=== PATIENT | female | born 1995 | race Caucasian/White ===

== ENCOUNTER 2017-11-13 16:27 | Emergency (ER) | payer MEDICAID ==
[~2017-11-13] VITALS: Ht 152.4 cm; Wt 56.1 kg
[~2017-11-13 16:27] MED LIST: ALBU8.5H8 IH; CITA20TA19 PO; DIAZ5TAB PO; DIVA500T2 PO; FAMO-128 PO; FAMO20TA44 PO; HYDR-569 PO; HYDR50CA5 PO; NITR100C6 PO; OMEP20CA10 PO; ONDA4TAB12 PO; ONDA4TAB6 PO; ONDA4TAB9 SL; ONDA8TAB9 PO; PANT-47 PO; PROC-8 PO; PROC25SU30 PR; RANI-366 PO; SUCR1ORA2 PO
[2017-11-13] MEDS ORDERED: ondansetron/PF 4mg/2ml inj IV ONE (16:40)
[2017-11-13] MEDS ORDERED: normal saline 1000ML IV soln IVB ONE (16:40)
[2017-11-13] MEDS ORDERED: ketorolac trometh. 30mg/ml inj. IV ONE (16:45)
[2017-11-13 17:22] LABS: BASOPHILS % (AUTO) 0.5 % (0-1); EOSINOPHILS # (AUTO) 0.1 X10'3 (0-0.9); EOSINOPHILS % (AUTO) 1.1 % (0-6); HEMATOCRIT 35.9 % (35.0-45.0); LYMPHOCYTES # (AUTO) 2.2 X10'3 (1.1-4.8); LYMPHOCYTES % (AUTO) 41.5 % (21-51); MEAN CORPUSCULAR HEMOGLOBIN 28.6 PG (27.0-31.0); MEAN CORPUSCULAR HGB CONC 33.5 % (33.0-36.5); MEAN CORPUSCULAR VOLUME 85.3 FL (78-98); MEAN PLATELET VOLUME 7.8 FL (7.4-10.4); MONOCYTES # (AUTO) 0.5 X10'3 (0-0.9); MONOCYTES % (AUTO) 9.7 % (2-12); NEUTROPHILS # (AUTO) 2.5 X10'3 (1.8-7.7); NEUTROPHILS % (AUTO) 47.2 % (42-75); PLATELET COUNT 238 X10'3 (140-440); RED BLOOD COUNT 4.21 X10'6 (4.20-5.60); RED CELL DISTRIBUTION WIDTH 14.1 % (11.5-14.5); WHITE BLOOD COUNT 5.4 X10'3 (4.5-11.0)
[2017-11-13 17:43] LABS: ALANINE AMINOTRANSFERASE 17 U/L (12-78); ALBUMIN 3.5 G/DL (3.4-5.0); ALBUMIN/GLOBULIN RATIO 1.1 (1.1-1.5); ALKALINE PHOSPHATASE 65 IU/L (20-180); ANION GAP 9 (8-16); ASPARTATE AMINO TRANSFERASE 10 U/L (10-37); BILIRUBIN,TOTAL 0.6 MG/DL (0.1-1.0); BLOOD UREA NITROGEN 5 MG/DL (7-18); BUN/CREATININE RATIO 7.2 (6.6-38.0); CALCIUM 8.4 MG/DL (8.5-10.1); CHLORIDE 104 MMOL/L (99-107); CREATININE 0.69 MG/DL (0.40-0.90); GLUCOSE 85 MG/DL (70-104); LIPASE 74 U/L (73-393); POTASSIUM 3.4 MMOL/L (3.5-5.1); SODIUM 138 MMOL/L (135-145); TOTAL CARBON DIOXIDE 25.5 MMOL/L (24-32); TOTAL PROTEIN 6.7 G/DL (6.4-8.2); eGFR > 90 ML/MIN
[2017-11-13 18:37] VITALS: BP 117/61
[2017-11-15 14:27] LABS: OCCULT BLOOD STOOL NEGATIVE (Neg)
== END 2017-11-13 18:39 | disposition home or self-care (01) ==
LOC: ER 16:27
DX: G89.29 Other chronic pain (principal); R10.11 Right upper quadrant pain; K21.9 Gastro-esophageal reflux disease without esophagitis; F12.10 Cannabis abuse, uncomplicated; Z88.8 Allergy status to other drugs, medicaments and biological substances; Z79.899 Other long term (current) drug therapy
CPT/HCPCS: 36415; 80053; 82272; 83690; 85025; 96361; 96374; 96375; 99284; J1885; J2405; J7030

== ENCOUNTER 2017-12-12 15:36 | Emergency (ER) | payer MEDICAID ==
[~2017-12-12] VITALS: Ht 152.4 cm; Wt 54.5 kg
[2017-12-12 16:48] LABS: BASOPHILS % (AUTO) 0.2 % (0-1); EOSINOPHILS # (AUTO) 0.1 X10'3 (0-0.9); EOSINOPHILS % (AUTO) 1.6 % (0-6); HEMATOCRIT 39.8 % (35.0-45.0); HEMOGLOBIN 13.6 g/dl (12.0-16.0); LYMPHOCYTES # (AUTO) 1.5 X10'3 (1.1-4.8); MEAN CORPUSCULAR HEMOGLOBIN 29.3 PG (27.0-31.0); MEAN CORPUSCULAR HGB CONC 34.1 % (33.0-36.5); MEAN CORPUSCULAR VOLUME 85.7 FL (78-98); MONOCYTES # (AUTO) 0.6 X10'3 (0-0.9); MONOCYTES % (AUTO) 12.8 % (2-12); NEUTROPHILS # (AUTO) 2.6 X10'3 (1.8-7.7); NEUTROPHILS % (AUTO) 54.4 % (42-75); PLATELET COUNT 265 X10'3 (140-440); RED BLOOD COUNT 4.65 X10'6 (4.20-5.60); RED CELL DISTRIBUTION WIDTH 13.5 % (11.5-14.5); WHITE BLOOD COUNT 4.8 X10'3 (4.5-11.0)
[2017-12-12 16:59] LABS: CLARITY,URINE CLOUDY (Clear); COLOR,URINE YELLOW (Yellow); GLUCOSE, URINE NEGATIVE (Neg); KETONES,URINE NEGATIVE (Neg); LEUKOCYTE ESTERASE ,URINE NEGATIVE (Neg); NITRITES, URINE NEGATIVE (Neg); OCCULT BLOOD,URINE TRACE-INTACT (Neg); PROTEIN,URINE NEGATIVE (Neg); UROBILINOGEN,URINE 0.2 E.U/dL (0.2-1.0)
[2017-12-12 17:00] LABS: URINE HCG NEGATIVE (NEG)
[2017-12-12 17:01] LABS: UA COLLECTION TYPE CLN CATCH MIDSTREAM
[2017-12-12 17:05] LABS: ALANINE AMINOTRANSFERASE 10 U/L (12-78); ALBUMIN 4.1 G/DL (3.4-5.0); ALBUMIN/GLOBULIN RATIO 1.2 (1.1-1.5); ALKALINE PHOSPHATASE 62 IU/L (20-180); ANION GAP 11 (8-16); ASPARTATE AMINO TRANSFERASE 11 U/L (10-37); BILIRUBIN,TOTAL 0.7 MG/DL (0.1-1.0); BLOOD UREA NITROGEN 5 MG/DL (7-18); BUN/CREATININE RATIO 6.8 (6.6-38.0); CALCIUM 8.9 MG/DL (8.5-10.1); CHLORIDE 104 MMOL/L (99-107); CREATININE 0.74 MG/DL (0.40-0.90); GLUCOSE 92 MG/DL (70-104); LIPASE 79 U/L (73-393); POTASSIUM 3.5 MMOL/L (3.5-5.1); SODIUM 140 MMOL/L (135-145); TOTAL PROTEIN 7.5 G/DL (6.4-8.2); eGFR > 90 ML/MIN
[2017-12-12 17:10] LABS: MUCUS STRANDS MANY /LPF (Neg); SQUAMOUS EPITHELIAL CELL,UR MANY /LPF (FEW)
[2017-12-12 17:12] LABS: BACTERIA,URINE 1+ /HPF (Neg); RBC,URINE 0-2 /HPF (0-2); WBC,URINE 0-4 /HPF (0-4)
[2017-12-12] MEDS ORDERED: ondansetron/PF 4mg/2ml inj IV ONE (17:20)
[2017-12-12] MEDS ORDERED: ketorolac trometh. 30mg/ml inj. IV ONE (17:20)
[2017-12-12] MEDS ORDERED: normal saline 1000ML IV soln IVB ONE (17:20)
[2017-12-12 18:58] LABS: URINE AMPHETAMINE SCREEN NEGATIVE (Neg); URINE BARBITUATE SCREEN NEGATIVE (Neg); URINE BENZODIAZEPINES SCREEN POSITIVE (Neg); URINE CANNABINOID SCREEN POSITIVE (Neg); URINE COCAINE SCREEN NEGATIVE (Neg); URINE METHADONE SCREEN NEGATIVE (Neg); URINE OPIATE SCREEN NEGATIVE (Neg); URINE PHENCYCLIDINE SCREEN NEGATIVE (Neg)
[2017-12-12 19:35] VITALS: BP 136/56
== END 2017-12-12 19:38 | disposition home or self-care (01) ==
LOC: ER 15:37
DX: R10.9 Unspecified abdominal pain (principal); R11.0 Nausea; G89.29 Other chronic pain; K21.9 Gastro-esophageal reflux disease without esophagitis; Z88.8 Allergy status to other drugs, medicaments and biological substances; Z79.899 Other long term (current) drug therapy
CPT/HCPCS: 36415; 80053; 80305; 81001; 81025; 83690; 85025; 96361; 96374; 96375; 99285; J1885; J2405

== ENCOUNTER 2017-12-14 10:11 | Emergency (ER) | payer MEDICAID ==
[~2017-12-14] VITALS: Ht 152.4 cm; Wt 54.5 kg
[~2017-12-14 10:11] MED LIST changes: -ONDA4TAB9 SL
[2017-12-14 10:16] VITALS: BP 128/24
== END 2017-12-14 10:35 | disposition left against medical advice (07) ==
LOC: ER 10:12
DX: R10.9 Unspecified abdominal pain (principal); Z53.21 Procedure and treatment not carried out due to patient leaving prior to being seen by health care provider

== ENCOUNTER 2018-09-23 15:34 | Emergency (ER) | payer MEDICAID ==
[~2018-09-23] VITALS: Ht 152.4 cm; Wt 53.6 kg
[~2018-09-23 15:34] MED LIST changes: +HYDR-4383 PO; -HYDR-569 PO
[2018-09-23 15:47] VITALS: BP 112/80
[2018-09-23] MEDS ORDERED: IBUP-1984 PO (17:18)
== END 2018-09-23 17:41 | disposition home or self-care (01) ==
LOC: ER 15:35
DX: M25.512 Pain in left shoulder (principal); K21.9 Gastro-esophageal reflux disease without esophagitis; F17.200 Nicotine dependence, unspecified, uncomplicated; F12.90 Cannabis use, unspecified, uncomplicated; Z88.8 Allergy status to other drugs, medicaments and biological substances; Z79.899 Other long term (current) drug therapy
CPT/HCPCS: 73030; 99283

== ENCOUNTER 2018-12-26 12:59 | Emergency (ER) | payer MEDICAID ==
[~2018-12-26] VITALS: Ht 152.4 cm; Wt 52.7 kg
[2018-12-26 13:58] LABS: BASOPHILS # (AUTO) 0.1 X10'3 (0-0.2); EOSINOPHILS # (AUTO) 0.1 X10'3 (0-0.9); EOSINOPHILS % (AUTO) 1.6 % (0-6); HEMATOCRIT 42.3 % (35.0-45.0); HEMOGLOBIN 14.5 g/dl (12.0-16.0); LYMPHOCYTES % (AUTO) 39.7 % (21-51); MEAN CORPUSCULAR HEMOGLOBIN 30.8 PG (27.0-31.0); MEAN CORPUSCULAR HGB CONC 34.3 g/dL (33.0-36.5); MEAN CORPUSCULAR VOLUME 89.8 FL (78-98); MEAN PLATELET VOLUME 8.1 FL (7.4-10.4); MONOCYTES # (AUTO) 0.5 X10'3 (0-0.9); MONOCYTES % (AUTO) 9.4 % (2-12); NEUTROPHILS # (AUTO) 2.4 X10'3 (1.8-7.7); NEUTROPHILS % (AUTO) 48.3 % (42-75); PLATELET COUNT 268 X10'3 (140-440); RED BLOOD COUNT 4.71 X10'6 (4.20-5.60); RED CELL DISTRIBUTION WIDTH 13.2 % (11.5-14.5); WHITE BLOOD COUNT 5.1 X10'3 (4.5-11.0)
[2018-12-26 14:03] VITALS: BP 140/93
[2018-12-26 14:08] LABS: ALANINE AMINOTRANSFERASE 17 U/L (12-78); ALBUMIN 3.9 G/DL (3.4-5.0); ALBUMIN/GLOBULIN RATIO 1.2 (1.1-1.5); ALKALINE PHOSPHATASE 64 IU/L (46-116); ANION GAP 8 (8-16); ASPARTATE AMINO TRANSFERASE 14 U/L (10-37); BILIRUBIN,TOTAL 0.3 MG/DL (0.1-1.0); BLOOD UREA NITROGEN 5 MG/DL (7-18); BUN/CREATININE RATIO 7.4 (6.6-38.0); CALCIUM 8.8 MG/DL (8.5-10.1); CHLORIDE 103 MMOL/L (99-107); CREATININE 0.68 MG/DL (0.40-0.90); GLUCOSE 91 MG/DL (70-104); POTASSIUM 3.8 MMOL/L (3.5-5.1); PROTHROMBIN TIME 10.1 SECONDS (9.0-12.0); SODIUM 139 MMOL/L (135-145); TOTAL CARBON DIOXIDE 27.7 MMOL/L (24-32); TOTAL PROTEIN 7.2 G/DL (6.4-8.2); eGFR > 90 ML/MIN
--- NOTE | 2018-12-26 16:27 | NUR ---
SECOND CALL NOT IN LOBBY
== END 2018-12-26 16:30 | disposition left against medical advice (07) ==
LOC: ER 12:59
DX: R10.9 Unspecified abdominal pain (principal); M54.9 Dorsalgia, unspecified; K21.9 Gastro-esophageal reflux disease without esophagitis; F12.90 Cannabis use, unspecified, uncomplicated; Z88.8 Allergy status to other drugs, medicaments and biological substances; Z79.899 Other long term (current) drug therapy; Z87.11 Personal history of peptic ulcer disease
CPT/HCPCS: 36415; 80053; 85025; 85610; 99283

== ENCOUNTER 2019-02-06 18:24 | Emergency (ER) | payer MEDICAID ==
[~2019-02-06] VITALS: Ht 152.4 cm; Wt 54.0 kg
[2019-02-06 18:51] VITALS: BP 108/65
[2019-02-06] MEDS ORDERED: ketorolac tromethamine 15mg/ml inj. IM ONE (20:00)
[2019-02-06] MEDS ORDERED: orphenadrine citrate 60mg/2ml inj. IM ONE (20:00)
[2019-02-06] MEDS ORDERED: ondansetron 4mg rapidly disintigrating tab PO ONE (20:15)
[2019-02-06] MEDS ORDERED: IBUP-1985 PO (20:42)
[2019-02-06] MEDS ORDERED: METH-360 PO (20:42)
== END 2019-02-06 21:06 | disposition home or self-care (01) ==
LOC: ER 18:25
DX: S29.012A Strain of muscle and tendon of back wall of thorax, initial encounter (principal); M54.5 Low back pain; K21.9 Gastro-esophageal reflux disease without esophagitis; F12.90 Cannabis use, unspecified, uncomplicated; Z87.11 Personal history of peptic ulcer disease; Z88.8 Allergy status to other drugs, medicaments and biological substances; Z88.1 Allergy status to other antibiotic agents; Z79.899 Other long term (current) drug therapy; W01.0XXA Fall on same level from slipping, tripping and stumbling without subsequent striking against object, initial encounter; Y93.89 Activity, other specified; Y92.89 Other specified places as the place of occurrence of the external cause; Y99.9 Unspecified external cause status
CPT/HCPCS: 72080; 96372; 99284; J1885; J2360; 99283

== ENCOUNTER 2019-03-27 08:32 | Emergency (ER) | payer MEDICAID ==
[~2019-03-27] VITALS: Ht 152.4 cm; Wt 5.5 kg
[~2019-03-27 08:32] MED LIST changes: +IBUP-1985 PO; +METH-360 PO
[2019-03-27] MEDS ORDERED: diphenhydrAMINE 50 mg/ml inj IV ONE (08:50)
[2019-03-27] MEDS ORDERED: normal saline 1000ML IV soln IVB ONE (08:50)
[2019-03-27 09:25] LABS: BASOPHILS % (AUTO) 0.1 % (0-1); EOSINOPHILS % (AUTO) 0.1 % (0-6); HEMATOCRIT 41.7 % (35.0-45.0); HEMOGLOBIN 14.2 g/dl (12.0-16.0); LYMPHOCYTES # (AUTO) 0.8 X10'3 (1.1-4.8); LYMPHOCYTES % (AUTO) 7.1 % (21-51); MEAN CORPUSCULAR HEMOGLOBIN 30.2 PG (27.0-31.0); MEAN PLATELET VOLUME 8.3 FL (7.4-10.4); MONOCYTES # (AUTO) 0.7 X10'3 (0-0.9); MONOCYTES % (AUTO) 6.5 % (2-12); NEUTROPHILS # (AUTO) 9.4 X10'3 (1.8-7.7); NEUTROPHILS % (AUTO) 86.2 % (42-75); PLATELET COUNT 261 X10'3 (140-440); RED BLOOD COUNT 4.69 X10'6 (4.20-5.60); RED CELL DISTRIBUTION WIDTH 13.3 % (11.5-14.5); WHITE BLOOD COUNT 10.9 X10'3 (4.5-11.0)
[2019-03-27 09:30] LABS: URINE HCG NEGATIVE (NEG)
[2019-03-27] MEDS ORDERED: ondansetron/PF 4mg/2ml inj IV ONE (09:35)
[2019-03-27 09:37] LABS: ALANINE AMINOTRANSFERASE 16 U/L (12-78); ALBUMIN 4.2 G/DL (3.4-5.0); ALBUMIN/GLOBULIN RATIO 1.2 (1.1-1.5); ALKALINE PHOSPHATASE 76 IU/L (46-116); ANION GAP 17 (8-16); ASPARTATE AMINO TRANSFERASE 15 U/L (10-37); BILIRUBIN,TOTAL 0.4 MG/DL (0.1-1.0); BLOOD UREA NITROGEN 8 MG/DL (7-18); BUN/CREATININE RATIO 9.9 (6.6-38.0); CALCIUM 9.2 MG/DL (8.5-10.1); CHLORIDE 103 MMOL/L (99-107); CREATININE 0.81 MG/DL (0.40-0.90); GLUCOSE 113 MG/DL (70-104); LIPASE 73 U/L (73-393); POTASSIUM 3.3 MMOL/L (3.5-5.1); SODIUM 137 MMOL/L (135-145); TOTAL CARBON DIOXIDE 17.2 MMOL/L (24-32); TOTAL PROTEIN 7.7 G/DL (6.4-8.2); eGFR 89 ML/MIN
[2019-03-27 09:59] VITALS: BP 103/55
[2019-03-27] MEDS ORDERED: METO-292 PO (15:27)
== END 2019-03-27 10:05 | disposition home or self-care (01) ==
LOC: ER 08:32
DX: R11.2 Nausea with vomiting, unspecified (principal); R19.7 Diarrhea, unspecified; K21.9 Gastro-esophageal reflux disease without esophagitis; F17.200 Nicotine dependence, unspecified, uncomplicated; F12.90 Cannabis use, unspecified, uncomplicated; Z88.8 Allergy status to other drugs, medicaments and biological substances; Z79.899 Other long term (current) drug therapy
CPT/HCPCS: 36415; 80053; 81025; 83690; 85025; 96361; 96374; 96375; 99283; J1200; J2405; J7030

== ENCOUNTER 2019-03-27 13:09 | Emergency (ER) | payer MEDICAID ==
[~2019-03-27] VITALS: Ht 152.4 cm; Wt 54.5 kg
[2019-03-27 13:30] VITALS: BP 118/80
[2019-03-27] MEDS ORDERED: metoclopramide 5 mg/ml inj IM ONE (14:45)
[2019-03-27] MEDS ORDERED: diphenhydrAMINE 25mg capsule PO ONE (15:20)
[2019-03-27] MEDS ORDERED: METO-292 PO (15:27)
== END 2019-03-27 15:37 | disposition home or self-care (01) ==
LOC: ER 13:10
DX: R11.2 Nausea with vomiting, unspecified (principal); K21.9 Gastro-esophageal reflux disease without esophagitis; F12.90 Cannabis use, unspecified, uncomplicated; Z88.8 Allergy status to other drugs, medicaments and biological substances; Z79.899 Other long term (current) drug therapy
CPT/HCPCS: 96372; 99283; J2765; Q0163

== ENCOUNTER 2019-05-20 08:45 | Emergency (ER) | payer MEDICAID ==
[~2019-05-20] VITALS: Ht 165.1 cm; Wt 55.0 kg
[~2019-05-20 08:45] MED LIST changes: +METO-292 PO; -OMEP20CA10 PO; +OMEP20CA11 PO
[2019-05-20 08:56] VITALS: BP 113/78
[2019-05-20 09:41] LABS: BASOPHILS % (AUTO) 0.8 % (0-1); EOSINOPHILS # (AUTO) 0.1 X10'3 (0-0.9); EOSINOPHILS % (AUTO) 1.5 % (0-6); HEMOGLOBIN 14.5 g/dl (12.0-16.0); LYMPHOCYTES # (AUTO) 1.5 X10'3 (1.1-4.8); LYMPHOCYTES % (AUTO) 31.4 % (21-51); MEAN CORPUSCULAR HEMOGLOBIN 30.7 PG (27.0-31.0); MEAN CORPUSCULAR HGB CONC 34.4 g/dL (33.0-36.5); MEAN CORPUSCULAR VOLUME 89.1 FL (78-98); MEAN PLATELET VOLUME 7.9 FL (7.4-10.4); MONOCYTES # (AUTO) 0.5 X10'3 (0-0.9); MONOCYTES % (AUTO) 11.1 % (2-12); NEUTROPHILS # (AUTO) 2.7 X10'3 (1.8-7.7); NEUTROPHILS % (AUTO) 55.2 % (42-75); PLATELET COUNT 244 X10'3 (140-440); RED BLOOD COUNT 4.72 X10'6 (4.20-5.60); RED CELL DISTRIBUTION WIDTH 12.6 % (11.5-14.5); WHITE BLOOD COUNT 4.9 X10'3 (4.5-11.0)
[2019-05-20 10:00] LABS: ALANINE AMINOTRANSFERASE 22 U/L (12-78); ALBUMIN 3.8 G/DL (3.4-5.0); ALBUMIN/GLOBULIN RATIO 1.1 (1.1-1.5); ALKALINE PHOSPHATASE 59 IU/L (46-116); ANION GAP 9 (8-16); ASPARTATE AMINO TRANSFERASE 10 U/L (10-37); BILIRUBIN,TOTAL 0.5 MG/DL (0.1-1.0); BLOOD UREA NITROGEN 9 MG/DL (7-18); BUN/CREATININE RATIO 13.2 (6.6-38.0); CHLORIDE 103 MMOL/L (99-107); CREATININE 0.68 MG/DL (0.40-0.90); GLUCOSE 92 MG/DL (70-104); LIPASE 71 U/L (73-393); POTASSIUM 3.9 MMOL/L (3.5-5.1); SODIUM 135 MMOL/L (135-145); TOTAL CARBON DIOXIDE 23.2 MMOL/L (24-32); TOTAL PROTEIN 7.2 G/DL (6.4-8.2); eGFR > 90 ML/MIN
[2019-05-20 10:02] LABS: CALCIUM 8.8 MG/DL (8.5-10.1)
[2019-05-20] MEDS ORDERED: metoclopramide 10mg/10 ml UD oral solution PO ONE (10:15)
[2019-05-20] MEDS ORDERED: diphenhydrAMINE 50 mg/ml inj IM ONE (10:15)
[2019-05-20 10:24] LABS: CLARITY,URINE SLIGHTLY CLOUDY (Clear); COLOR,URINE STRAW (Yellow); GLUCOSE, URINE NEGATIVE (Neg); KETONES,URINE NEGATIVE (Neg); LEUKOCYTE ESTERASE ,URINE NEGATIVE (Neg); NITRITES, URINE NEGATIVE (Neg); OCCULT BLOOD,URINE NEGATIVE (Neg); PROTEIN,URINE NEGATIVE (Neg); UROBILINOGEN,URINE 0.2 E.U/dL (0.2-1.0)
[2019-05-20 10:25] LABS: URINE HCG NEGATIVE (NEG)
[2019-05-20 10:27] LABS: UA COLLECTION TYPE CLN CATCH MIDSTREAM
[2019-05-20 10:31] LABS: BACTERIA,URINE 1+ /HPF (Neg); MUCUS STRANDS NONE SEEN /LPF (Neg); RBC,URINE 0-2 /HPF (0-2); SQUAMOUS EPITHELIAL CELL,UR MODERATE /LPF (FEW); WBC,URINE 0-4 /HPF (0-4)
== END 2019-05-20 10:45 | disposition home or self-care (01) ==
LOC: ER 08:46
DX: G43.A0 Cyclical vomiting, in migraine, not intractable (principal); R10.13 Epigastric pain; K21.9 Gastro-esophageal reflux disease without esophagitis; F41.9 Anxiety disorder, unspecified; F32.9 Major depressive disorder, single episode, unspecified; F12.90 Cannabis use, unspecified, uncomplicated; F10.99 Alcohol use, unspecified with unspecified alcohol-induced disorder; Z86.69 Personal history of other diseases of the nervous system and sense organs; Z88.8 Allergy status to other drugs, medicaments and biological substances; Z79.899 Other long term (current) drug therapy; Y90.9 Presence of alcohol in blood, level not specified
CPT/HCPCS: 36415; 80053; 81001; 81025; 83690; 85025; 96372; 99283; J1200; J8597

== ENCOUNTER 2019-06-30 07:16 | Emergency (ER) | payer MEDICAID ==
[~2019-06-30] VITALS: Ht 152.4 cm; Wt 56.8 kg
[2019-06-30 07:21] VITALS: BP 113/81
[2019-06-30] MEDS ORDERED: BENZ-16 PO (07:58)
[2019-06-30] MEDS ORDERED: acetaminophen 325mg tablet PO ONE (08:00)
[2019-06-30] MEDS ORDERED: ondansetron 4mg rapidly disintigrating tab PO ONE (08:00)
[2019-06-30] MEDS ORDERED: benzonatate 100mg capsule PO ONE (08:00)
[2019-06-30] MEDS ORDERED: pantoprazole 40mg Tablet.DR PO ONE (08:00)
[2019-06-30] MEDS ORDERED: pseudoephedrine 30mg tablet PO ONE (08:00)
== END 2019-06-30 08:34 | disposition home or self-care (01) ==
LOC: ER 07:16
DX: J06.9 Acute upper respiratory infection, unspecified (principal); H92.01 Otalgia, right ear; K21.9 Gastro-esophageal reflux disease without esophagitis; F41.9 Anxiety disorder, unspecified; F32.9 Major depressive disorder, single episode, unspecified; F17.200 Nicotine dependence, unspecified, uncomplicated; F12.90 Cannabis use, unspecified, uncomplicated; F10.99 Alcohol use, unspecified with unspecified alcohol-induced disorder; Z86.69 Personal history of other diseases of the nervous system and sense organs; Z88.8 Allergy status to other drugs, medicaments and biological substances; Z79.899 Other long term (current) drug therapy; Y90.9 Presence of alcohol in blood, level not specified
CPT/HCPCS: 99284

== ENCOUNTER 2019-10-01 08:41 | Emergency (ER) | payer MEDICAID ==
[~2019-10-01] VITALS: Ht 152.4 cm; Wt 54.5 kg
[2019-10-01 08:49] VITALS: BP 119/79
[2019-10-01] MEDS ORDERED: sucralfate 1gm/10ml UD suspension PO STA (09:58)
[2019-10-01] MEDS ORDERED: ondansetron 4mg rapidly disintigrating tab PO ONE (10:00)
[2019-10-01] MEDS ORDERED: LIDOcaine Viscous 15ml cup MM ONE (10:00)
[2019-10-01] MEDS ORDERED: mag hydrox/Alum hydrox/simeth 30ml oral suspension PO ONE (10:00)
[2019-10-01] MEDS ORDERED: ketorolac trometh. 30mg/ml inj. IM ONE (10:00)
== END 2019-10-01 10:54 | disposition left against medical advice (07) ==
LOC: ER 08:42
DX: R05 Cough (principal); R09.3 Abnormal sputum; R11.2 Nausea with vomiting, unspecified; R51 Headache; K21.9 Gastro-esophageal reflux disease without esophagitis; F41.9 Anxiety disorder, unspecified; F32.9 Major depressive disorder, single episode, unspecified; F10.99 Alcohol use, unspecified with unspecified alcohol-induced disorder; F12.90 Cannabis use, unspecified, uncomplicated; Z86.69 Personal history of other diseases of the nervous system and sense organs; Z88.8 Allergy status to other drugs, medicaments and biological substances; Z79.899 Other long term (current) drug therapy; Y90.9 Presence of alcohol in blood, level not specified
CPT/HCPCS: 99281

== ENCOUNTER 2019-11-29 13:43 | Emergency (ER) | payer MEDICAID ==
[~2019-11-29] VITALS: Ht 152.4 cm; Wt 56.0 kg
[~2019-11-29 13:43] MED LIST changes: -OMEP20CA11 PO; +OMEP20CA15 PO
[2019-11-29 15:28] VITALS: BP 119/89
== END 2019-11-29 15:30 | disposition home or self-care (01) ==
LOC: ER 13:44
DX: R11.2 Nausea with vomiting, unspecified (principal); R51 Headache; K21.9 Gastro-esophageal reflux disease without esophagitis; F41.9 Anxiety disorder, unspecified; F32.9 Major depressive disorder, single episode, unspecified; F12.90 Cannabis use, unspecified, uncomplicated; F17.200 Nicotine dependence, unspecified, uncomplicated; Z86.69 Personal history of other diseases of the nervous system and sense organs; Z88.8 Allergy status to other drugs, medicaments and biological substances; Z79.899 Other long term (current) drug therapy
CPT/HCPCS: 99281

== ENCOUNTER 2019-12-19 11:01 | Emergency (ER) | payer MEDICAID ==
[~2019-12-19] VITALS: Ht 152.4 cm; Wt 56.0 kg
[2019-12-19] MEDS ORDERED: ondansetron/PF 4mg/2ml inj IV ONE (12:10)
[2019-12-19] MEDS ORDERED: normal saline 1000ML IV soln IVB ONE (12:10)
[2019-12-19] MEDS ORDERED: ketorolac trometh. 30mg/ml inj. IV ONE (12:30)
[2019-12-19 12:47] LABS: BASOPHILS % (AUTO) 0.5 % (0-1); EOSINOPHILS # (AUTO) 0.1 X10'3 (0-0.9); EOSINOPHILS % (AUTO) 1.8 % (0-6); HEMATOCRIT 42.5 % (35.0-45.0); HEMOGLOBIN 14.4 g/dl (12.0-16.0); LYMPHOCYTES # (AUTO) 1.6 X10'3 (1.1-4.8); LYMPHOCYTES % (AUTO) 51.8 % (21-51); MEAN CORPUSCULAR HGB CONC 33.9 g/dL (33.0-36.5); MEAN CORPUSCULAR VOLUME 88.3 FL (78-98); MEAN PLATELET VOLUME 7.8 FL (7.4-10.4); MONOCYTES # (AUTO) 0.3 X10'3 (0-0.9); MONOCYTES % (AUTO) 10.3 % (2-12); NEUTROPHILS # (AUTO) 1.1 X10'3 (1.8-7.7); NEUTROPHILS % (AUTO) 35.6 % (42-75); PLATELET COUNT 247 X10'3 (140-440); RED BLOOD COUNT 4.81 X10'6 (4.20-5.60); WHITE BLOOD COUNT 3.2 X10'3 (4.5-11.0)
[2019-12-19 13:01] LABS: ALANINE AMINOTRANSFERASE 15 U/L (12-78); ALBUMIN 3.7 G/DL (3.4-5.0); ALBUMIN/GLOBULIN RATIO 1.1 (1.1-1.5); ALKALINE PHOSPHATASE 56 IU/L (46-116); ANION GAP 5 (8-16); ASPARTATE AMINO TRANSFERASE 15 U/L (10-37); BILIRUBIN,TOTAL 0.2 MG/DL (0.1-1.0); BLOOD UREA NITROGEN 7 MG/DL (7-18); BUN/CREATININE RATIO 10.8 (6.6-38.0); CALCIUM 8.6 MG/DL (8.5-10.1); CHLORIDE 108 MMOL/L (99-107); CREATININE 0.65 MG/DL (0.40-0.90); GLUCOSE 82 MG/DL (70-104); LIPASE 90 U/L (73-393); POTASSIUM 4.1 MMOL/L (3.5-5.1); SODIUM 142 MMOL/L (135-145); TOTAL CARBON DIOXIDE 28.8 MMOL/L (24-32); eGFR > 90 ML/MIN
[2019-12-19] MEDS ORDERED: ONDA4TAB12 PO (13:18)
[2019-12-19 13:45] VITALS: BP 98/74
== END 2019-12-19 13:49 | disposition home or self-care (01) ==
LOC: ER 11:02
DX: E86.0 Dehydration (principal); R11.15 Cyclical vomiting syndrome unrelated to migraine; F12.90 Cannabis use, unspecified, uncomplicated; R51 Headache; K21.9 Gastro-esophageal reflux disease without esophagitis; F41.9 Anxiety disorder, unspecified; F17.200 Nicotine dependence, unspecified, uncomplicated; F32.9 Major depressive disorder, single episode, unspecified; Z72.89 Other problems related to lifestyle; Z86.69 Personal history of other diseases of the nervous system and sense organs; Z88.8 Allergy status to other drugs, medicaments and biological substances; Z79.899 Other long term (current) drug therapy
CPT/HCPCS: 36415; 80053; 83690; 85025; 96361; 96374; 96375; 99284; J1885; J2405; J7030

== ENCOUNTER 2020-02-25 18:15 | Emergency (ER) | payer MEDICAID ==
[~2020-02-25] VITALS: Ht 152.4 cm; Wt 56.8 kg
[2020-02-25] MEDS ORDERED: LIDOcaine 1% 30ml preserv. free vial IJ ONE (19:00)
[2020-02-25] MEDS ORDERED: LIDOcaine 1% 30ml preserv. free vial ONE (19:00)
[2020-02-25] MEDS ORDERED: TETanus/Pertussis (Acell)/Diphther VAC/PF (Tdap-Adult) 0.5ml syringe IMVAC ONE (19:00)
[2020-02-25 20:07] VITALS: BP 137/83
== END 2020-02-25 20:11 | disposition home or self-care (01) ==
LOC: ER 18:15
DX: S61.211A Laceration without foreign body of left index finger without damage to nail, initial encounter (principal); K21.9 Gastro-esophageal reflux disease without esophagitis; F41.9 Anxiety disorder, unspecified; F32.9 Major depressive disorder, single episode, unspecified; F12.90 Cannabis use, unspecified, uncomplicated; Z72.89 Other problems related to lifestyle; Z88.8 Allergy status to other drugs, medicaments and biological substances; Z86.69 Personal history of other diseases of the nervous system and sense organs; Z79.899 Other long term (current) drug therapy; W26.0XXA Contact with knife, initial encounter; Y93.89 Activity, other specified; Y92.89 Other specified places as the place of occurrence of the external cause; Y99.8 Other external cause status
CPT/HCPCS: 12041; 90471; 90715; 99284; J2001

== ENCOUNTER 2020-02-27 12:57 | Emergency (ER) | payer MEDICAID ==
[~2020-02-27] VITALS: Ht 152.4 cm; Wt 55.6 kg
[2020-02-27 13:11] VITALS: BP 122/71
--- NOTE | 2020-02-27 13:47 | NUR ---
pt is 24 yo female c/o rt sided face pain, swelling, had tooth removed yesterday by Dr Garcia, provider is not in the office today, pt plans to follow up with dentist tomorrow, pt took norco at 0530, zofran at 0530, tried taking motrin later, +n/v, pt has prescription of zofran for "stomach ulcer",
[2020-02-27] MEDS ORDERED: acetaminophen/codeine 120mg/12mg per 5ml cup PO ONE (15:30)
[2020-02-27] MEDS ORDERED: ACET5SOL2 PO (15:34)
== END 2020-02-27 15:55 | disposition home or self-care (01) ==
LOC: ER 12:58
DX: K08.89 Other specified disorders of teeth and supporting structures (principal); K21.9 Gastro-esophageal reflux disease without esophagitis; F32.9 Major depressive disorder, single episode, unspecified; F41.9 Anxiety disorder, unspecified; F17.200 Nicotine dependence, unspecified, uncomplicated; F12.90 Cannabis use, unspecified, uncomplicated; Z86.69 Personal history of other diseases of the nervous system and sense organs; Z72.89 Other problems related to lifestyle; Z88.8 Allergy status to other drugs, medicaments and biological substances; Z88.1 Allergy status to other antibiotic agents; Z79.899 Other long term (current) drug therapy
CPT/HCPCS: 99283

== ENCOUNTER 2020-03-05 09:44 | Emergency (ER) | payer MEDICAID ==
[~2020-03-05] VITALS: Ht 152.4 cm; Wt 56.3 kg
[~2020-03-05 09:44] MED LIST changes: +ACET5SOL2 PO
--- NOTE | 2020-03-05 09:59 | NUR ---
Suture removal kit placed in room at bedside.
[2020-03-05 10:35] VITALS: BP 121/64
== END 2020-03-05 10:35 | disposition home or self-care (01) ==
LOC: ER 09:45
DX: S61.211D Laceration without foreign body of left index finger without damage to nail, subsequent encounter (principal); F17.299 Nicotine dependence, other tobacco product, with unspecified nicotine-induced disorders; K21.9 Gastro-esophageal reflux disease without esophagitis; F41.9 Anxiety disorder, unspecified; F32.9 Major depressive disorder, single episode, unspecified; F12.90 Cannabis use, unspecified, uncomplicated; Z72.89 Other problems related to lifestyle; Z86.69 Personal history of other diseases of the nervous system and sense organs; Z88.8 Allergy status to other drugs, medicaments and biological substances; Z79.899 Other long term (current) drug therapy; W26.0XXA Contact with knife, initial encounter; Y93.89 Activity, other specified; Y92.89 Other specified places as the place of occurrence of the external cause; Y99.8 Other external cause status
CPT/HCPCS: 99281; 99406

== ENCOUNTER 2020-10-19 21:12 | Emergency (ER) | payer MEDICAID ==
[~2020-10-19] VITALS: Ht 152.4 cm; Wt 68.1 kg
[2020-10-19 21:20] VITALS: BP 129/95
[2020-10-19 21:50] LABS: BASOPHILS % (AUTO) 0.5 % (0-1); EOSINOPHILS % (AUTO) 0.2 % (0-6); HEMATOCRIT 41.9 % (35.0-45.0); HEMOGLOBIN 14.3 g/dl (12.0-16.0); LYMPHOCYTES # (AUTO) 2.2 X10'3 (1.1-4.8); LYMPHOCYTES % (AUTO) 33.4 % (21-51); MEAN CORPUSCULAR HEMOGLOBIN 30.7 PG (27.0-31.0); MEAN CORPUSCULAR HGB CONC 34.2 g/dL (33.0-36.5); MEAN CORPUSCULAR VOLUME 89.7 FL (78-98); MEAN PLATELET VOLUME 8.3 FL (7.4-10.4); MONOCYTES # (AUTO) 0.6 X10'3 (0-0.9); MONOCYTES % (AUTO) 9.2 % (2-12); NEUTROPHILS # (AUTO) 3.8 X10'3 (1.8-7.7); NEUTROPHILS % (AUTO) 56.7 % (42-75); PLATELET COUNT 256 X10'3 (140-440); RED BLOOD COUNT 4.67 X10'6 (4.20-5.60); RED CELL DISTRIBUTION WIDTH 12.5 % (11.5-14.5); WHITE BLOOD COUNT 6.6 X10'3 (4.5-11.0)
[2020-10-19 21:58] LABS: ALANINE AMINOTRANSFERASE 17 U/L (12-78); ALBUMIN 4.6 G/DL (3.4-5.0); ALBUMIN/GLOBULIN RATIO 1.6 (1.1-1.5); ALKALINE PHOSPHATASE 53 IU/L (46-116); ANION GAP 12 (8-16); ASPARTATE AMINO TRANSFERASE 13 U/L (10-37); BLOOD UREA NITROGEN 9 MG/DL (7-18); BUN/CREATININE RATIO 10.7 (6.6-38.0); CALCIUM 9.4 MG/DL (8.5-10.1); CHLORIDE 103 MMOL/L (99-107); CREATININE 0.84 MG/DL (0.40-0.90); GLUCOSE 84 MG/DL (70-104); LIPASE < 50 U/L (73-393); POTASSIUM 3.1 MMOL/L (3.5-5.1); SODIUM 139 MMOL/L (135-145); TOTAL CARBON DIOXIDE 23.8 MMOL/L (24-32); TOTAL PROTEIN 7.4 G/DL (6.4-8.2); eGFR 84 ML/MIN
[2020-10-19] MEDS ORDERED: normal saline 1000ML IV soln IVB ONE (22:10)
[2020-10-19] MEDS ORDERED: ketorolac tromethamine 15mg/ml inj. IV ONE (22:10)
[2020-10-19] MEDS ORDERED: ondansetron/PF 4mg/2ml inj IV ONE (22:10)
[2020-10-19] MEDS ORDERED: sucralfate 1gm/10ml UD suspension PO STA (22:59)
[2020-10-19] MEDS ORDERED: LIDOcaine Viscous 15ml cup MM ONE (23:00)
[2020-10-19] MEDS ORDERED: mag hydrox/Alum hydrox/simeth 30ml oral suspension PO ONE (23:00)
[2020-10-19 23:13] LABS: CLARITY,URINE SLIGHTLY CLOUDY (Clear); COLOR,URINE YELLOW (Yellow); GLUCOSE, URINE NEGATIVE (Neg); KETONES,URINE 40 mg/dl (Neg); LEUKOCYTE ESTERASE ,URINE NEGATIVE (Neg); NITRITES, URINE NEGATIVE (Neg); OCCULT BLOOD,URINE TRACE-INTACT (Neg); PROTEIN,URINE 30 mg/dl (Neg); URINE HCG NEGATIVE (NEG)
[2020-10-19] MEDS ORDERED: ONDA4TAB6 PO (23:14)
[2020-10-19] MEDS ORDERED: PROM25TA14 PO (23:14)
[2020-10-19 23:19] LABS: UA COLLECTION TYPE CLN CATCH MIDSTREAM
[2020-10-19 23:20] LABS: BACTERIA,URINE FEW /HPF (Neg); RBC,URINE 0-2 /HPF (0-2); SQUAMOUS EPITHELIAL CELL,UR MODERATE /LPF (FEW); WBC,URINE 0-4 /HPF (0-4)
== END 2020-10-19 23:46 | disposition home or self-care (01) ==
LOC: ER 21:12
DX: R11.2 Nausea with vomiting, unspecified (principal); R10.9 Unspecified abdominal pain; J02.9 Acute pharyngitis, unspecified; K21.9 Gastro-esophageal reflux disease without esophagitis; F41.9 Anxiety disorder, unspecified; F32.9 Major depressive disorder, single episode, unspecified; F12.10 Cannabis abuse, uncomplicated; Z88.8 Allergy status to other drugs, medicaments and biological substances
CPT/HCPCS: 36415; 80053; 81001; 81025; 83690; 85025; 96361; 96374; 96375; 99284; J1885; J2405; J7030

== ENCOUNTER 2020-10-25 11:02 | Emergency (ER) | payer MEDICAID ==
[~2020-10-25] VITALS: Ht 152.4 cm; Wt 9.1 kg
[~2020-10-25 11:02] MED LIST changes: +PROM25TA14 PO
[2020-10-25 11:35] VITALS: BP 123/88
[2020-10-25] MEDS ORDERED: ONDA4TAB6 PO (11:47)
== END 2020-10-25 11:55 | disposition home or self-care (01) ==
LOC: ER 11:03
DX: R11.15 Cyclical vomiting syndrome unrelated to migraine (principal); R11.2 Nausea with vomiting, unspecified; R51.9 Headache, unspecified; K21.9 Gastro-esophageal reflux disease without esophagitis; F41.9 Anxiety disorder, unspecified; F32.9 Major depressive disorder, single episode, unspecified; F12.90 Cannabis use, unspecified, uncomplicated; Z86.69 Personal history of other diseases of the nervous system and sense organs; Z87.11 Personal history of peptic ulcer disease; Z72.89 Other problems related to lifestyle; Z88.8 Allergy status to other drugs, medicaments and biological substances; Z79.899 Other long term (current) drug therapy
CPT/HCPCS: 99283

== ENCOUNTER 2020-11-15 04:47 | Emergency (ER) | payer MEDICAID ==
[~2020-11-15] VITALS: Ht 152.4 cm; Wt 52.7 kg
[2020-11-15 04:52] VITALS: BP 130/92
[2020-11-15] MEDS ORDERED: HYDR-3965 PO (05:33)
[2020-11-15] MEDS ORDERED: NAPR-56 PO (05:33)
[2020-11-15] MEDS ORDERED: AMOX-422 PO (05:33)
[2020-11-15] MEDS ORDERED: HYDROcodone/acetaminophen 10/325mg tab PO ONE (05:35)
[2020-11-15] MEDS ORDERED: naproxen 500mg tablet PO ONE (05:35)
[2020-11-15] MEDS ORDERED: acetaminophen 325mg tablet PO ONE (05:35)
[2020-11-15] MEDS ORDERED: amox tr/potassium clavulanate 875/125mg TAB PO ONE (05:35)
== END 2020-11-15 05:57 | disposition home or self-care (01) ==
LOC: ER 04:48
DX: K04.7 Periapical abscess without sinus (principal); K02.9 Dental caries, unspecified; K21.9 Gastro-esophageal reflux disease without esophagitis; F17.200 Nicotine dependence, unspecified, uncomplicated; F12.90 Cannabis use, unspecified, uncomplicated; Z87.11 Personal history of peptic ulcer disease; Z86.61 Personal history of infections of the central nervous system; Z79.2 Long term (current) use of antibiotics; Z79.899 Other long term (current) drug therapy; Z88.8 Allergy status to other drugs, medicaments and biological substances
CPT/HCPCS: 99284

== ENCOUNTER 2021-01-07 10:45 | Emergency (ER) | payer MEDICAID ==
[~2021-01-07] VITALS: Ht 152.4 cm; Wt 56.8 kg
[2021-01-07 11:06] VITALS: BP 102/67
== END 2021-01-07 12:12 | disposition home or self-care (01) ==
LOC: ER 10:45
DX: S63.591A Other specified sprain of right wrist, initial encounter (principal); K21.9 Gastro-esophageal reflux disease without esophagitis; F41.9 Anxiety disorder, unspecified; F32.9 Major depressive disorder, single episode, unspecified; F12.90 Cannabis use, unspecified, uncomplicated; Z86.69 Personal history of other diseases of the nervous system and sense organs; Z87.11 Personal history of peptic ulcer disease; Z72.89 Other problems related to lifestyle; Z88.8 Allergy status to other drugs, medicaments and biological substances; Z79.899 Other long term (current) drug therapy; X58.XXXA Exposure to other specified factors, initial encounter; Y93.89 Activity, other specified; Y92.89 Other specified places as the place of occurrence of the external cause; Y99.8 Other external cause status
CPT/HCPCS: 73060; 73090; 99284

== ENCOUNTER 2021-01-19 15:29 | Emergency (ER) | payer MEDICAID | END 2021-01-19 17:23 | disposition left against medical advice (07) | LOC: ER 15:29 | DX: Z91.81 History of falling (principal); Z53.21 Procedure and treatment not carried out due to patient leaving prior to being seen by health care provider ==

== ENCOUNTER 2021-01-20 10:47 | Emergency (ER) | payer MEDICAID ==
[~2021-01-20] VITALS: Ht 152.4 cm; Wt 54.5 kg
[2021-01-20 10:51] VITALS: BP 126/75
--- NOTE | 2021-01-20 12:31 | NUR ---
Called patient back to room for the third time, patient was not in lobby. Per registration patient stated that she was leaving. Attempted to contact patient at listed number at which there was no answer. Dr. Mengfs aware.
== END 2021-01-20 12:32 | disposition left against medical advice (07) ==
LOC: ER 10:48
DX: R56.9 Unspecified convulsions (principal); R11.10 Vomiting, unspecified; Z53.21 Procedure and treatment not carried out due to patient leaving prior to being seen by health care provider

== ENCOUNTER 2021-02-17 07:26 | Emergency (ER) | payer MEDICAID ==
[~2021-02-17] VITALS: Ht 154.9 cm; Wt 58.1 kg
[2021-02-17 07:34] VITALS: BP 104/72
[2021-02-17] MEDS ORDERED: ondansetron 4mg rapidly disintigrating tab PO ONE (08:25)
[2021-02-17] MEDS ORDERED: LIDOcaine Viscous 15ml cup MM ONE (09:00)
[2021-02-17] MEDS ORDERED: mag hydrox/Alum hydrox/simeth 30ml oral suspension PO ONE (09:00)
[2021-02-17 09:18] LABS: BASOPHILS % (AUTO) 0.2 % (0-1); EOSINOPHILS % (AUTO) 0.2 % (0-6); HEMATOCRIT 40.1 % (35.0-45.0); HEMOGLOBIN 13.5 g/dl (12.0-16.0); LYMPHOCYTES # (AUTO) 1.3 X10'3 (1.1-4.8); LYMPHOCYTES % (AUTO) 16.1 % (21-51); MEAN CORPUSCULAR HEMOGLOBIN 30.5 PG (27.0-31.0); MEAN CORPUSCULAR HGB CONC 33.6 g/dL (33.0-36.5); MEAN CORPUSCULAR VOLUME 90.8 FL (78-98); MEAN PLATELET VOLUME 7.8 FL (7.4-10.4); MONOCYTES # (AUTO) 0.5 X10'3 (0-0.9); NEUTROPHILS # (AUTO) 6.3 X10'3 (1.8-7.7); NEUTROPHILS % (AUTO) 77.5 % (42-75); PLATELET COUNT 293 X10'3 (140-440); RED BLOOD COUNT 4.42 X10'6 (4.20-5.60); RED CELL DISTRIBUTION WIDTH 12.4 % (11.5-14.5); WHITE BLOOD COUNT 8.1 X10'3 (4.5-11.0)
[2021-02-17 09:33] LABS: ALANINE AMINOTRANSFERASE 18 U/L (12-78); ALBUMIN 3.8 G/DL (3.4-5.0); ALBUMIN/GLOBULIN RATIO 1.1 (1.1-1.5); ALKALINE PHOSPHATASE 54 IU/L (46-116); ANION GAP 11 (8-16); ASPARTATE AMINO TRANSFERASE 13 U/L (10-37); BILIRUBIN,TOTAL 0.2 MG/DL (0.1-1.0); BLOOD UREA NITROGEN 8 MG/DL (7-18); BUN/CREATININE RATIO 12.7 (6.6-38.0); CALCIUM 8.4 MG/DL (8.5-10.1); CHLORIDE 106 MMOL/L (99-107); CREATININE 0.63 MG/DL (0.40-0.90); GLUCOSE 101 MG/DL (70-104); POTASSIUM 3.9 MMOL/L (3.5-5.1); SODIUM 144 MMOL/L (135-145); TOTAL CARBON DIOXIDE 26.6 MMOL/L (24-32); TOTAL PROTEIN 7.2 G/DL (6.4-8.2); eGFR > 90 ML/MIN
[2021-02-17 10:35] LABS: URINE HCG NEGATIVE (NEG)
== END 2021-02-17 10:43 | disposition left against medical advice (07) ==
LOC: ER 07:27
DX: R10.11 Right upper quadrant pain (principal); R11.2 Nausea with vomiting, unspecified; R19.7 Diarrhea, unspecified; K21.9 Gastro-esophageal reflux disease without esophagitis; F41.9 Anxiety disorder, unspecified; F32.9 Major depressive disorder, single episode, unspecified; F12.90 Cannabis use, unspecified, uncomplicated; Z86.69 Personal history of other diseases of the nervous system and sense organs; Z72.89 Other problems related to lifestyle; Z88.8 Allergy status to other drugs, medicaments and biological substances; Z79.899 Other long term (current) drug therapy
CPT/HCPCS: 36415; 80053; 81025; 85025; 99283

== ENCOUNTER 2021-03-11 13:36 | Emergency (ER) | payer MEDICAID ==
[~2021-03-11] VITALS: Ht 297.7 cm; Wt 57.2 kg
[2021-03-11 14:00] VITALS: BP 121/86
[2021-03-11] MEDS ORDERED: LIDOcaine 1% W/epiNEPHrine 1:200,000 10ml vial IJ ONE (14:20)
== END 2021-03-11 15:12 | disposition home or self-care (01) ==
LOC: ER 13:37
DX: S61.217A Laceration without foreign body of left little finger without damage to nail, initial encounter (principal); K21.9 Gastro-esophageal reflux disease without esophagitis; F41.9 Anxiety disorder, unspecified; F32.9 Major depressive disorder, single episode, unspecified; F12.90 Cannabis use, unspecified, uncomplicated; Z86.69 Personal history of other diseases of the nervous system and sense organs; Z72.89 Other problems related to lifestyle; Z88.8 Allergy status to other drugs, medicaments and biological substances; Z79.899 Other long term (current) drug therapy; W26.0XXA Contact with knife, initial encounter; Y93.89 Activity, other specified; Y92.89 Other specified places as the place of occurrence of the external cause; Y99.8 Other external cause status
CPT/HCPCS: 12001; 99282

== ENCOUNTER 2021-03-27 21:15 | Emergency (ER) | payer MEDICAID ==
[~2021-03-27] VITALS: Ht 152.4 cm; Wt 56.5 kg
[2021-03-27 21:27] VITALS: BP 119/77
== END 2021-03-27 22:44 | disposition left against medical advice (07) ==
LOC: ER 21:19
DX: R11.0 Nausea (principal); Z53.21 Procedure and treatment not carried out due to patient leaving prior to being seen by health care provider

== ENCOUNTER 2021-04-28 13:51 | Emergency (ER) | payer MEDICAID, OTHER ==
[~2021-04-28] VITALS: Ht 152.4 cm; Wt 54.5 kg
[2021-04-28 13:56] VITALS: BP 119/78
== END 2021-04-28 18:15 | disposition left against medical advice (07) ==
LOC: ER 13:52
DX: S13.4XXA Sprain of ligaments of cervical spine, initial encounter (principal); M54.2 Cervicalgia; M25.512 Pain in left shoulder; R07.89 Other chest pain; K21.9 Gastro-esophageal reflux disease without esophagitis; F41.9 Anxiety disorder, unspecified; F32.9 Major depressive disorder, single episode, unspecified; F12.90 Cannabis use, unspecified, uncomplicated; Z72.89 Other problems related to lifestyle; Z87.11 Personal history of peptic ulcer disease; Z88.8 Allergy status to other drugs, medicaments and biological substances; Z79.899 Other long term (current) drug therapy; Z86.69 Personal history of other diseases of the nervous system and sense organs; V87.7XXA Person injured in collision between other specified motor vehicles (traffic), initial encounter; Y93.89 Activity, other specified; Y92.89 Other specified places as the place of occurrence of the external cause; Y99.8 Other external cause status
CPT/HCPCS: 71045; 99283

== ENCOUNTER 2021-05-03 08:24 | Emergency (ER) | payer MEDICAID, OTHER ==
[~2021-05-03] VITALS: Ht 152.4 cm; Wt 54.5 kg
[2021-05-03 08:39] VITALS: BP 108/71
[2021-05-03] MEDS ORDERED: ketorolac tromethamine 15mg/ml inj. IV ONE ×2 (09:10→09:40)
[2021-05-03] MEDS ORDERED: normal saline 1000ML IV soln IVB ONE (09:10)
[2021-05-03] MEDS ORDERED: ondansetron/PF 4mg/2ml inj IV ONE ×2 (09:10→09:40)
[2021-05-03] MEDS ORDERED: ONDA4TAB6 PO (09:13)
[2021-05-03] MEDS ORDERED: acetaminophen 325mg tablet PO ONE (10:20)
== END 2021-05-03 10:39 | disposition home or self-care (01) ==
LOC: ER 08:25
DX: R11.2 Nausea with vomiting, unspecified (principal); T50.B95A Adverse effect of other viral vaccines, initial encounter; Y92.89 Other specified places as the place of occurrence of the external cause
CPT/HCPCS: 96361; 96374; 96375; 99284; J1885; J2405; J7030

== ENCOUNTER → 2021-08-22 | Emergency (ER) | payer MEDICAID ==
[~2021-08-22] VITALS: Ht 152.4 cm; Wt 57.1 kg
[~2021-08-22] MED LIST changes: +ALBU8.5H17 IH; -ALBU8.5H8 IH
[2021-08-22 11:31] VITALS: BP 128/88
== END | disposition left against medical advice (07) ==
LOC: ER 11:16
DX: R11.10 Vomiting, unspecified (principal); R10.84 Generalized abdominal pain; Z53.21 Procedure and treatment not carried out due to patient leaving prior to being seen by health care provider

== ENCOUNTER 2021-12-01 08:30 | Emergency (ER) | payer MEDICAID ==
[~2021-12-01] VITALS: Ht 152.4 cm; Wt 52.3 kg
[2021-12-01 08:42] VITALS: BP 111/81
--- NOTE | 2021-12-01 10:00 | NUR ---
PT REQUESTING TO LEAVE AND BE CALLED WITH HER RESULTS. ED NATHALIE AVITIA NOTIFIED OF REQUEST
--- NOTE | 2021-12-01 10:07 | NUR ---
NUMBER TO CALL PT BACK WITH RESULTS [phone]
== END 2021-12-01 10:09 | disposition home or self-care (01) ==
LOC: ER 08:31
DX: U07.1 COVID-19 (principal); R19.7 Diarrhea, unspecified; R51.9 Headache, unspecified; R50.9 Fever, unspecified; R11.2 Nausea with vomiting, unspecified; K21.9 Gastro-esophageal reflux disease without esophagitis; F41.9 Anxiety disorder, unspecified; F32.9 Major depressive disorder, single episode, unspecified; F12.90 Cannabis use, unspecified, uncomplicated; Z86.69 Personal history of other diseases of the nervous system and sense organs; Z87.11 Personal history of peptic ulcer disease; Z72.89 Other problems related to lifestyle; Z88.8 Allergy status to other drugs, medicaments and biological substances; Z79.899 Other long term (current) drug therapy
CPT/HCPCS: 87502; 87503; 87635; 99283; C9803

== ENCOUNTER 2021-12-19 11:06 | Emergency (ER) | payer MEDICAID ==
[~2021-12-19] VITALS: Ht 152.4 cm; Wt 54.4 kg
[2021-12-19 11:18] VITALS: BP 102/69
[2021-12-19] MEDS ORDERED: NAPR-56 PO (11:40)
[2021-12-19] MEDS ORDERED: PENI250T2 PO (11:40)
[2021-12-19] MEDS ORDERED: HYDROcodone/acetaminophen 5mg/325mg tablet PO ONE (11:40)
== END 2021-12-19 11:53 | disposition home or self-care (01) ==
LOC: ER 11:06
DX: G89.29 Other chronic pain (principal); K08.89 Other specified disorders of teeth and supporting structures; K21.9 Gastro-esophageal reflux disease without esophagitis; F41.9 Anxiety disorder, unspecified; F32.9 Major depressive disorder, single episode, unspecified; F12.10 Cannabis abuse, uncomplicated; Z88.8 Allergy status to other drugs, medicaments and biological substances; Z88.1 Allergy status to other antibiotic agents
CPT/HCPCS: 99283

== ENCOUNTER 2021-12-26 07:25 | Emergency (ER) | payer MEDICAID ==
[~2021-12-26] VITALS: Ht 152.4 cm; Wt 54.5 kg
[~2021-12-26 07:25] MED LIST changes: +NAPR-56 PO; +PENI250T2 PO
[2021-12-26 07:35] VITALS: BP 129/88
[2021-12-26] MEDS ORDERED: orphenadrine citrate 60mg/2ml inj. IM ONE (08:40)
[2021-12-26] MEDS ORDERED: ketorolac trometh inj. 60 MG/2 ML VIAL IM ONE (08:55)
[2021-12-26] MEDS ORDERED: IBUP-1986 PO (09:19)
[2021-12-26] MEDS ORDERED: ketorolac trometh. 30mg/ml inj. IM ONE (09:55)
== END 2021-12-26 10:22 | disposition home or self-care (01) ==
LOC: ER 07:25
DX: S16.1XXA Strain of muscle, fascia and tendon at neck level, initial encounter (principal); M54.9 Dorsalgia, unspecified; F12.90 Cannabis use, unspecified, uncomplicated; K21.9 Gastro-esophageal reflux disease without esophagitis; Z87.11 Personal history of peptic ulcer disease; Z85.41 Personal history of malignant neoplasm of cervix uteri; Z72.89 Other problems related to lifestyle; Z88.8 Allergy status to other drugs, medicaments and biological substances; Z79.899 Other long term (current) drug therapy; Z88.1 Allergy status to other antibiotic agents; V49.29XA Unspecified car occupant injured in collision with other motor vehicles in nontraffic accident, initial encounter; Y93.89 Activity, other specified; Y92.89 Other specified places as the place of occurrence of the external cause; Y99.8 Other external cause status
CPT/HCPCS: 20553; 96372; 99284; J1885; J2360

== ENCOUNTER 2022-01-18 09:25 | Emergency (ER) | payer MEDICAID ==
[~2022-01-18] VITALS: Ht 152.4 cm; Wt 54.5 kg
[~2022-01-18 09:25] MED LIST changes: +IBUP-1986 PO; -PENI250T2 PO
[2022-01-18 09:35] VITALS: BP 116/69
== END 2022-01-18 11:08 | disposition home or self-care (01) ==
LOC: ER 09:25
DX: R20.2 Paresthesia of skin (principal); K21.9 Gastro-esophageal reflux disease without esophagitis; F41.9 Anxiety disorder, unspecified; F12.90 Cannabis use, unspecified, uncomplicated; Z86.69 Personal history of other diseases of the nervous system and sense organs; Z87.11 Personal history of peptic ulcer disease; Z72.89 Other problems related to lifestyle; Z88.8 Allergy status to other drugs, medicaments and biological substances; Z79.899 Other long term (current) drug therapy
CPT/HCPCS: 99281

== ENCOUNTER 2022-01-31 07:59 | Emergency (ER) | payer MEDICAID ==
[~2022-01-31] VITALS: Ht 152.4 cm; Wt 53.7 kg
[~2022-01-31 07:59] MED LIST changes: -NAPR-56 PO
[2022-01-31] MEDS ORDERED: normal saline 1000ml 1,000 ML IV ONE (08:30)
[2022-01-31] MEDS ORDERED: ondansetron/PF 4mg/2ml inj IV ONE (08:30)
[2022-01-31] MEDS ORDERED: ketorolac tromethamine 15mg/ml inj. IV ONE (08:35)
[2022-01-31] MEDS ORDERED: loperamide 2mg capsule PO ONE (09:25)
[2022-01-31] MEDS ORDERED: ONDA8TAB13 PO ×2 (09:45)
[2022-01-31] MEDS ORDERED: LOPE2CAP PO ×2 (09:45)
[2022-01-31 09:51] VITALS: BP 98/70
--- NOTE | 2022-01-31 09:53 | NUR ---
Pt given and understands d/c instructions. IV d/c'd, catheter was intact. Ambulatory with a steady gait.
[2022-01-31 10:18] LABS: CLARITY,URINE SLIGHTLY CLOUDY (Clear); COLOR,URINE YELLOW (Yellow); GLUCOSE, URINE NEGATIVE (Neg); KETONES,URINE >=80 mg/dl (Neg); LEUKOCYTE ESTERASE ,URINE NEGATIVE (Neg); NITRITES, URINE NEGATIVE (Neg); OCCULT BLOOD,URINE LARGE (Neg); PROTEIN,URINE 30 mg/dl (Neg); UROBILINOGEN,URINE 0.2 E.U/dL (0.2-1.0)
[2022-01-31 10:21] LABS: URINE HCG NEGATIVE (NEG)
[2022-01-31 10:24] LABS: UA COLLECTION TYPE CLN CATCH MIDSTREAM
[2022-01-31 10:26] LABS: MUCUS STRANDS MANY /LPF (Neg); SQUAMOUS EPITHELIAL CELL,UR MANY /LPF (FEW)
[2022-01-31 10:27] LABS: BACTERIA,URINE FEW /HPF (Neg); WBC,URINE 0-4 /HPF (0-4)
[2022-01-31 10:31] LABS: URINE AMPHETAMINE SCREEN NEGATIVE (Neg); URINE BARBITUATE SCREEN NEGATIVE (Neg); URINE BENZODIAZEPINES SCREEN POSITIVE (Neg); URINE CANNABINOID SCREEN POSITIVE (Neg); URINE COCAINE SCREEN NEGATIVE (Neg); URINE METHADONE SCREEN NEGATIVE (Neg); URINE OPIATE SCREEN NEGATIVE (Neg); URINE PHENCYCLIDINE SCREEN NEGATIVE (Neg)
[2022-02-01] MEDS ORDERED: iohexol 300mg/ml 100ml inj. ONE (11:35)
[2022-02-01] MEDS ORDERED: HYDR-3965 PO ×2 (13:10)
[2022-02-01] MEDS ORDERED: PROM25SU9 RC ×2 (13:10)
== END 2022-01-31 10:05 | disposition home or self-care (01) ==
LOC: ER 08:00
DX: K52.9 Noninfective gastroenteritis and colitis, unspecified (principal); R11.2 Nausea with vomiting, unspecified; E86.0 Dehydration; K21.9 Gastro-esophageal reflux disease without esophagitis; F41.9 Anxiety disorder, unspecified; F32.A Depression, unspecified; F12.90 Cannabis use, unspecified, uncomplicated; Z86.69 Personal history of other diseases of the nervous system and sense organs; Z87.11 Personal history of peptic ulcer disease; Z72.89 Other problems related to lifestyle; Z88.8 Allergy status to other drugs, medicaments and biological substances; Z79.899 Other long term (current) drug therapy
CPT/HCPCS: 80305; 81001; 81025; 96361; 96374; 96375; 99284; J1885; J2405; J7030; Q9967

== ENCOUNTER 2022-02-01 08:25 | Emergency (ER) | payer MEDICAID ==
[~2022-02-01] VITALS: Ht 154.9 cm; Wt 53.6 kg
[~2022-02-01 08:25] MED LIST changes: +LOPE2CAP PO; +ONDA8TAB13 PO
--- NOTE | 2022-02-01 09:06 | NUR ---
pt requesting ice chips. states she "doesn't care if it makes her throw up more, it hurts to dry heave". ice chips provided. awaiting
[2022-02-01] MEDS ORDERED: pantoprazole 40MG/NS 100ML BAG 100 ML IV ONE (10:25)
[2022-02-01] MEDS ORDERED: ondansetron/PF 4mg/2ml inj IV ONE (10:25)
[2022-02-01] MEDS ORDERED: famotidine/PF 10 mg/ml inj IV ONE (10:25)
[2022-02-01] MEDS ORDERED: normal saline 1000ML IV soln IVB ONE (10:25)
[2022-02-01] MEDS ORDERED: normal saline 1000ml 1,000 ML IV ONE (10:25)
[2022-02-01] MEDS ORDERED: morphine 4 MG/ML inj SYRINge IV ONE (10:30)
[2022-02-01 10:53] LABS: HEMATOCRIT 40.3 % (35.0-45.0); LYMPHOCYTES # (AUTO) 0.5 X10'3 (1.1-4.8); MEAN PLATELET VOLUME 8.3 FL (7.4-10.4); WHITE BLOOD COUNT 4.8 X10'3 (4.5-11.0)
[2022-02-01 10:55] LABS: BASOPHILS % (AUTO) 0.4 % (0-1); EOSINOPHILS % (AUTO) 0.1 % (0-6); HEMOGLOBIN 13.5 g/dl (12.0-16.0); LYMPHOCYTES % (AUTO) 10.7 % (21-51); MEAN CORPUSCULAR HEMOGLOBIN 29.4 PG (27.0-31.0); MEAN CORPUSCULAR HGB CONC 33.5 g/dL (33.0-36.5); MONOCYTES # (AUTO) 0.5 X10'3 (0-0.9); MONOCYTES % (AUTO) 9.6 % (2-12); NEUTROPHILS # (AUTO) 3.8 X10'3 (1.8-7.7); NEUTROPHILS % (AUTO) 79.2 % (42-75); PLATELET COUNT 225 X10'3 (140-440); RED BLOOD COUNT 4.58 X10'6 (4.20-5.60); RED CELL DISTRIBUTION WIDTH 12.9 % (11.5-14.5)
[2022-02-01 11:21] LABS: ALANINE AMINOTRANSFERASE 15 U/L (12-78); ALBUMIN/GLOBULIN RATIO 1.3 (1.1-1.5); ALKALINE PHOSPHATASE 51 IU/L (46-116); ANION GAP 13 (8-16); ASPARTATE AMINO TRANSFERASE 10 U/L (10-37); BILIRUBIN,TOTAL 0.6 MG/DL (0.1-1.0); BLOOD UREA NITROGEN 7 MG/DL (7-18); BUN/CREATININE RATIO 10.9 (6.6-38.0); CALCIUM 8.8 MG/DL (8.5-10.1); CHLORIDE 102 MMOL/L (99-107); CREATININE 0.64 MG/DL (0.40-0.90); GLUCOSE 104 MG/DL (70-104); LIPASE 54 U/L (73-393); POTASSIUM 3.4 MMOL/L (3.5-5.1); SODIUM 136 MMOL/L (135-145); TOTAL PROTEIN 7.1 G/DL (6.4-8.2); eGFR > 90 ML/MIN
[2022-02-01] MEDS ORDERED: HYDR-3965 PO ×2 (13:10)
[2022-02-01] MEDS ORDERED: HYDROcodone/acetaminophen 10/325mg tab PO ONE (13:10)
[2022-02-01] MEDS ORDERED: PROM25SU9 RC ×2 (13:10)
[2022-02-01 13:41] VITALS: BP 112/82
== END 2022-02-01 13:53 | disposition home or self-care (01) ==
LOC: ER 08:26
DX: R10.32 Left lower quadrant pain (principal); R11.10 Vomiting, unspecified; K21.9 Gastro-esophageal reflux disease without esophagitis; F41.9 Anxiety disorder, unspecified; F32.A Depression, unspecified; F12.90 Cannabis use, unspecified, uncomplicated; Z86.69 Personal history of other diseases of the nervous system and sense organs; Z87.440 Personal history of urinary (tract) infections; Z72.89 Other problems related to lifestyle; Z88.8 Allergy status to other drugs, medicaments and biological substances; Z79.899 Other long term (current) drug therapy
CPT/HCPCS: 36415; 74177; 80053; 83690; 85025; 96361; 96374; 96375; 99285; C9113; J2270; J2405; J3490; J7030; Q9967; 99284

== ENCOUNTER 2022-02-11 13:46 | Emergency (ER) | payer MEDICAID ==
[~2022-02-11] VITALS: Ht 152.4 cm; Wt 54.5 kg
[~2022-02-11 13:46] MED LIST changes: +HYDR-3965 PO; +PROM25SU9 RC
[2022-02-11 14:01] VITALS: BP 145/102
[2022-02-11 14:25] LABS: BASOPHILS % (AUTO) 0.4 % (0-1); EOSINOPHILS % (AUTO) 0.4 % (0-6); HEMATOCRIT 46.7 % (35.0-45.0); HEMOGLOBIN 15.7 g/dl (12.0-16.0); LYMPHOCYTES # (AUTO) 1.8 X10'3 (1.1-4.8); LYMPHOCYTES % (AUTO) 20.5 % (21-51); MEAN CORPUSCULAR HEMOGLOBIN 29.9 PG (27.0-31.0); MEAN CORPUSCULAR HGB CONC 33.7 g/dL (33.0-36.5); MEAN CORPUSCULAR VOLUME 88.6 FL (78-98); MONOCYTES # (AUTO) 0.8 X10'3 (0-0.9); MONOCYTES % (AUTO) 9.5 % (2-12); NEUTROPHILS % (AUTO) 69.2 % (42-75); PLATELET COUNT 315 X10'3 (140-440); RED BLOOD COUNT 5.27 X10'6 (4.20-5.60); WHITE BLOOD COUNT 8.6 X10'3 (4.5-11.0)
[2022-02-11 14:41] LABS: ALANINE AMINOTRANSFERASE 17 U/L (12-78); ALBUMIN 4.3 G/DL (3.4-5.0); ALBUMIN/GLOBULIN RATIO 1.3 (1.1-1.5); ALKALINE PHOSPHATASE 55 IU/L (46-116); ANION GAP 11 (8-16); ASPARTATE AMINO TRANSFERASE 12 U/L (10-37); BILIRUBIN,TOTAL 0.5 MG/DL (0.1-1.0); BLOOD UREA NITROGEN 6 MG/DL (7-18); BUN/CREATININE RATIO 7.5 (6.6-38.0); CALCIUM 9.5 MG/DL (8.5-10.1); CHLORIDE 102 MMOL/L (99-107); GLUCOSE 109 MG/DL (70-104); LIPASE 58 U/L (73-393); SODIUM 138 MMOL/L (135-145); TOTAL CARBON DIOXIDE 25.4 MMOL/L (24-32); TOTAL PROTEIN 7.7 G/DL (6.4-8.2); eGFR 88 ML/MIN
== END 2022-02-11 16:26 | disposition left against medical advice (07) ==
LOC: ER 13:47
DX: R11.2 Nausea with vomiting, unspecified (principal); R10.9 Unspecified abdominal pain; Z53.21 Procedure and treatment not carried out due to patient leaving prior to being seen by health care provider
CPT/HCPCS: 36415; 80053; 83690; 85025

== ENCOUNTER 2022-02-12 06:56 | Emergency (ER) | payer MEDICAID ==
[~2022-02-12] VITALS: Ht 152.4 cm; Wt 52.6 kg
[2022-02-12] MEDS ORDERED: normal saline 1000ml 1,000 ML IV ONE ×2 (07:40→08:50)
[2022-02-12] MEDS ORDERED: ondansetron/PF 4mg/2ml inj IV ONE (07:40)
[2022-02-12] MEDS ORDERED: normal saline 1000ML IV soln IVB ONE (07:40)
[2022-02-12] MEDS: morphine 4 MG/ML inj SYRINge IV PRN ×2 (08:03→08:52)
[2022-02-12 08:13] LABS: BASOPHILS % (AUTO) 0.3 % (0-1); EOSINOPHILS % (AUTO) 0 % (0-6); HEMATOCRIT 40.8 % (35.0-45.0); HEMOGLOBIN 13.8 g/dl (12.0-16.0); LYMPHOCYTES # (AUTO) 1.4 X10'3 (1.1-4.8); LYMPHOCYTES % (AUTO) 15.2 % (21-51); MEAN CORPUSCULAR HEMOGLOBIN 29.8 PG (27.0-31.0); MEAN CORPUSCULAR HGB CONC 33.9 g/dL (33.0-36.5); MEAN CORPUSCULAR VOLUME 87.8 FL (78-98); MEAN PLATELET VOLUME 7.9 FL (7.4-10.4); MONOCYTES # (AUTO) 0.8 X10'3 (0-0.9); MONOCYTES % (AUTO) 8.7 % (2-12); NEUTROPHILS # (AUTO) 6.9 X10'3 (1.8-7.7); NEUTROPHILS % (AUTO) 75.8 % (42-75); PLATELET COUNT 275 X10'3 (140-440); RED BLOOD COUNT 4.64 X10'6 (4.20-5.60); RED CELL DISTRIBUTION WIDTH 13.3 % (11.5-14.5); WHITE BLOOD COUNT 9.1 X10'3 (4.5-11.0)
[2022-02-12 08:20] LABS: ALANINE AMINOTRANSFERASE 16 U/L (12-78); ALBUMIN 3.9 G/DL (3.4-5.0); ALBUMIN/GLOBULIN RATIO 1.2 (1.1-1.5); ALKALINE PHOSPHATASE 49 IU/L (46-116); ANION GAP 11 (8-16); ASPARTATE AMINO TRANSFERASE 14 U/L (10-37); BILIRUBIN,TOTAL 0.7 MG/DL (0.1-1.0); BLOOD UREA NITROGEN 8 MG/DL (7-18); BUN/CREATININE RATIO 12.1 (6.6-38.0); CALCIUM 8.9 MG/DL (8.5-10.1); CHLORIDE 104 MMOL/L (99-107); CREATININE 0.66 MG/DL (0.40-0.90); GLUCOSE 103 MG/DL (70-104); LIPASE < 50 U/L (73-393); POTASSIUM 3.5 MMOL/L (3.5-5.1); SODIUM 138 MMOL/L (135-145); TOTAL CARBON DIOXIDE 23.5 MMOL/L (24-32); TOTAL PROTEIN 7.1 G/DL (6.4-8.2); eGFR > 90 ML/MIN
[2022-02-12] MEDS ORDERED: haloperidol lactate 5mg/ml inj IV ONE (08:50)
[2022-02-12] MEDS ORDERED: metoclopramide 5 mg/ml inj IV ONE (08:55)
[2022-02-12] MEDS ORDERED: diphenhydrAMINE 50 mg/ml inj IV ONE (08:55)
[2022-02-12 09:01] LABS: CLARITY,URINE SLIGHTLY CLOUDY (Clear); COLOR,URINE YELLOW (Yellow); GLUCOSE, URINE NEGATIVE (Neg); KETONES,URINE 15 mg/dl (Neg); LEUKOCYTE ESTERASE ,URINE NEGATIVE (Neg); NITRITES, URINE NEGATIVE (Neg); OCCULT BLOOD,URINE TRACE-INTACT (Neg); PROTEIN,URINE NEGATIVE (Neg); UA COLLECTION TYPE NON-SPECIFIED; UROBILINOGEN,URINE 0.2 E.U/dL (0.2-1.0)
[2022-02-12 09:07] LABS: URINE HCG NEGATIVE (NEG)
[2022-02-12 09:08] LABS: BACTERIA,URINE 1+ /HPF (Neg); MUCUS STRANDS MODERATE /LPF (Neg); RBC,URINE 0-2 /HPF (0-2); SQUAMOUS EPITHELIAL CELL,UR MANY /LPF (FEW); TRANSITIONAL EPI CELLS,URINE FEW /HPF; WBC,URINE 0-4 /HPF (0-4)
[2022-02-12 10:04] VITALS: BP 99/69
== END 2022-02-12 10:06 | disposition home or self-care (01) ==
LOC: ER 06:57
DX: R11.2 Nausea with vomiting, unspecified (principal); R10.12 Left upper quadrant pain; K21.9 Gastro-esophageal reflux disease without esophagitis; F31.9 Bipolar disorder, unspecified; F12.10 Cannabis abuse, uncomplicated; Z88.8 Allergy status to other drugs, medicaments and biological substances; Z88.6 Allergy status to analgesic agent; Z79.899 Other long term (current) drug therapy
CPT/HCPCS: 36415; 80053; 81001; 81025; 83690; 85025; 96361; 96374; 96375; 96376; 99284; J1200; J1630; J2270; J2405; J2765; J7030

== ENCOUNTER 2022-02-25 08:01 | Inpatient (IN) | payer MEDICAID ==
[~2022-02-25] VITALS: Ht 152.4 cm; Wt 52.3 kg
[2022-02-25 08:45] LABS: BASOPHILS % (AUTO) 0.3 % (0-1); EOSINOPHILS % (AUTO) 0 % (0-6); HEMOGLOBIN 14.1 g/dl (12.0-16.0); LYMPHOCYTES # (AUTO) 0.7 X10'3 (1.1-4.8); LYMPHOCYTES % (AUTO) 13.9 % (21-51); MEAN CORPUSCULAR HGB CONC 33.6 g/dL (33.0-36.5); MEAN CORPUSCULAR VOLUME 86.5 FL (78-98); MEAN PLATELET VOLUME 8.5 FL (7.4-10.4); MONOCYTES # (AUTO) 0.3 X10'3 (0-0.9); MONOCYTES % (AUTO) 6.8 % (2-12); NEUTROPHILS # (AUTO) 3.8 X10'3 (1.8-7.7); PLATELET COUNT 281 X10'3 (140-440); RED BLOOD COUNT 4.85 X10'6 (4.20-5.60); RED CELL DISTRIBUTION WIDTH 13.1 % (11.5-14.5); WHITE BLOOD COUNT 4.8 X10'3 (4.5-11.0)
[2022-02-25 08:55] LABS: ALANINE AMINOTRANSFERASE 11 U/L (12-78); ALBUMIN 4.1 G/DL (3.4-5.0); ALBUMIN/GLOBULIN RATIO 1.2 (1.1-1.5); ALKALINE PHOSPHATASE 57 IU/L (46-116); ANION GAP 11 (8-16); ASPARTATE AMINO TRANSFERASE 9 U/L (10-37); BILIRUBIN,TOTAL 0.4 MG/DL (0.1-1.0); BLOOD UREA NITROGEN 6 MG/DL (7-18); BUN/CREATININE RATIO 9.5 (6.6-38.0); CHLORIDE 103 MMOL/L (99-107); CREATININE 0.63 MG/DL (0.40-0.90); GLUCOSE 117 MG/DL (70-104); LIPASE 52 U/L (73-393); POTASSIUM 3.4 MMOL/L (3.5-5.1); SODIUM 137 MMOL/L (135-145); TOTAL CARBON DIOXIDE 23.1 MMOL/L (24-32); TOTAL PROTEIN 7.5 G/DL (6.4-8.2); eGFR > 90 ML/MIN
--- NOTE | 2022-02-25 10:59 | NUR ---
PT IS UNABLE TO GIVE URINE SAMPLE AT THIS TIME, WAITING TO BE EVALUATED BY PROVIDER
--- NOTE | 2022-02-25 11:29 | NUR ---
PT BEING EVALUATED BY DR TAN
[2022-02-25] MEDS ORDERED: ondansetron/PF 4mg/2ml inj IV ONE (11:35)
[2022-02-25] MEDS ORDERED: normal saline 1000ML IV soln IVB ONE (11:35)
[2022-02-25] MEDS: morphine 4 MG/ML inj SYRINge IV PRN ×2 (11:55→15:41)
--- NOTE | 2022-02-25 11:58 | NUR ---
1ST LITER NS INFUSING W/O, MEDICATED PER ORDER, PT IS RESTING QUIETLY IN DARK ROOM, WAITING FOR CT
[2022-02-25 12:32] LABS: CLARITY,URINE CLOUDY (Clear); COLOR,URINE YELLOW (Yellow); GLUCOSE, URINE NEGATIVE (Neg); KETONES,URINE 15 mg/dl (Neg); LEUKOCYTE ESTERASE ,URINE NEGATIVE (Neg); NITRITES, URINE NEGATIVE (Neg); OCCULT BLOOD,URINE MODERATE (Neg); PROTEIN,URINE 30 mg/dl (Neg); UROBILINOGEN,URINE 0.2 E.U/dL (0.2-1.0)
[2022-02-25 12:33] LABS: URINE HCG NEGATIVE (NEG)
[2022-02-25 12:44] LABS: UA COLLECTION TYPE CLN CATCH MIDSTREAM
[2022-02-25 12:45] LABS: BACTERIA,URINE 1+ /HPF (Neg); MUCUS STRANDS MANY /LPF (Neg); RBC,URINE TNTC /HPF (0-2); SQUAMOUS EPITHELIAL CELL,UR MANY /LPF (FEW)
[2022-02-25 12:46] LABS: WBC,URINE 0-4 /HPF (0-4)
[2022-02-25] MEDS ORDERED: metoclopramide 5 mg/ml inj IV ONE (13:25)
[2022-02-25] MEDS ORDERED: diphenhydrAMINE 50 mg/ml inj IV ONE (13:25)
[2022-02-25] MEDS ORDERED: pantoprazole 40MG/NS 100ML BAG 100 ML IV ONE (13:40)
[2022-02-25] MEDS ORDERED: famotidine/PF 10 mg/ml inj IV ONE (13:40)
[2022-02-25] MEDS ORDERED: metroNIDAZOLE-Flagyl 500mg/NS 100 ML IV STA (13:45)
[2022-02-25] MEDS ORDERED: mag hydrox/Alum hydrox/simeth 30ml oral suspension PO PRN (13:55)
[2022-02-25] MEDS ORDERED: acetaminophen 325mg tablet PO PRN ×2 (13:55)
[2022-02-25] MEDS ORDERED: magnesium hydroxide 30ml (MOM) UD suspension PO PRN (13:55)
[2022-02-25] MEDS ORDERED: potassium CL 10mEq/100ml bag 100 ML IV PRN (13:55)
[2022-02-25] MEDS ORDERED: morphine 2 MG/ML inj. syringe IV PRN (13:55)
[2022-02-25] MEDS ORDERED: potassium Cl 20 mEq SR tablet PO PRN ×2 (13:55)
[2022-02-25] MEDS ORDERED: HYDROcodone/acetaminophen 10/325mg tab PO PRN (13:55)
[2022-02-25] MEDS ORDERED: magnesium Cl slow-release 64mg tablet PO PRN (13:55)
[2022-02-25] MEDS ORDERED: acetaminophen 650mg rectal suppository RC PRN (13:55)
[2022-02-25] MEDS ORDERED: magnesium 4gm in 100ml NS 100 ML IV PRN (13:55)
[2022-02-25] MEDS ORDERED: HYDROcodone/acetaminophen 5mg/325mg tablet PO PRN (13:55)
[2022-02-25] MEDS ORDERED: magnesium 2GM in 50ml NS 50 ML IV PRN (13:55)
[2022-02-25] MEDS: normal saline 1000ml 1,000 ML IV SCH (14:43)
[2022-02-25] MEDS ORDERED: NO HOME MEDS (14:57)
[2022-02-25 15:08] LABS: HEMOGLOBIN 12.1 g/dl (12.0-16.0); MEAN CORPUSCULAR HEMOGLOBIN 29.2 PG (27.0-31.0); MEAN CORPUSCULAR HGB CONC 33.5 g/dL (33.0-36.5); MEAN CORPUSCULAR VOLUME 87.3 FL (78-98); MEAN PLATELET VOLUME 7.9 FL (7.4-10.4); PLATELET COUNT 228 X10'3 (140-440); RED BLOOD COUNT 4.12 X10'6 (4.20-5.60); RED CELL DISTRIBUTION WIDTH 12.9 % (11.5-14.5); WHITE BLOOD COUNT 4.5 X10'3 (4.5-11.0)
[2022-02-25] MEDS: pantoprazole 40MG/NS 100ML BAG 100 ML IV SCH ×3 (16:00→22:41)
[2022-02-25] MEDS ORDERED: pantoprazole 40MG/NS 100ML BAG 100 ML IV SCH (16:00)
[2022-02-25] MEDS: morphine 2 MG/ML inj. syringe IV PRN (18:34)
[2022-02-25] MEDS: ondansetron/PF 4mg/2ml inj IV PRN (18:34)
--- NOTE | 2022-02-25 18:46 | NUR ---
Patient in room ED 8. I have received report from LUZMARIA Farris and had the opportunity to ask questions and assume patient care. PT VSS
[2022-02-25 19:15] VITALS: BP 102/62
[2022-02-25] MEDS: docusate sod 100mg capsule PO SCH (19:38)
[2022-02-25] MEDS: K and/or MAG REPLACEMENT MC SCH (20:00)
[2022-02-25] MEDS ORDERED: DIPH25CA83 PO (20:30)
[2022-02-25 21:36] LABS: HEMATOCRIT 33.3 % (35.0-45.0); HEMOGLOBIN 11.5 g/dl (12.0-16.0); MEAN CORPUSCULAR HGB CONC 34.6 g/dL (33.0-36.5); MEAN CORPUSCULAR VOLUME 86.7 FL (78-98); MEAN PLATELET VOLUME 7.8 FL (7.4-10.4); PLATELET COUNT 194 X10'3 (140-440); RED BLOOD COUNT 3.84 X10'6 (4.20-5.60); RED CELL DISTRIBUTION WIDTH 12.8 % (11.5-14.5); WHITE BLOOD COUNT 4.9 X10'3 (4.5-11.0)
--- NOTE | 2022-02-25 22:30 | NUR ---
Pt stated she feels itchy and that she thinks it may be from anxiety and it happens to her on occasion at home and she takes benadryl for it. She has no redness or rash in the area she is itchy.
[2022-02-25] MEDS: ciprofloxacin lact 400MG/200ML 200 ML IV SCH (22:41)
[2022-02-25] MEDS: diphenhydrAMINE 25mg capsule PO PRN (22:42)
[2022-02-26] VITALS (8 sets, daily range): BP systolic 103–159; BP diastolic 63–87
[2022-02-26] MEDS: metroNIDAZOLE-Flagyl 500mg/NS 100 ML IV SCH ×2 (00:20→07:39)
[2022-02-26] MEDS: morphine 2 MG/ML inj. syringe IV PRN ×4 (02:32→16:05)
[2022-02-26] MEDS: pantoprazole 40MG/NS 100ML BAG 100 ML IV SCH ×3 (02:32→09:41)
[2022-02-26] MEDS: normal saline 1000ml 1,000 ML IV SCH (02:39)
[2022-02-26] MEDS: diphenhydrAMINE 25mg capsule PO PRN (05:47)
[2022-02-26 06:11] LABS: BASOPHILS % (AUTO) 0.4 % (0-1); EOSINOPHILS % (AUTO) 0.3 % (0-6); HEMATOCRIT 33.2 % (35.0-45.0); HEMOGLOBIN 11.2 g/dl (12.0-16.0); LYMPHOCYTES # (AUTO) 1.5 X10'3 (1.1-4.8); MEAN CORPUSCULAR HEMOGLOBIN 29.8 PG (27.0-31.0); MEAN CORPUSCULAR HGB CONC 33.9 g/dL (33.0-36.5); MEAN CORPUSCULAR VOLUME 87.9 FL (78-98); MONOCYTES # (AUTO) 0.4 X10'3 (0-0.9); NEUTROPHILS # (AUTO) 1.1 X10'3 (1.8-7.7); NEUTROPHILS % (AUTO) 37.3 % (42-75); PLATELET COUNT 175 X10'3 (140-440); RED BLOOD COUNT 3.77 X10'6 (4.20-5.60)
--- NOTE | 2022-02-26 06:25 | NUR ---
Problems reprioritized. Patient report given, questions answered & plan of care reviewed with LUZMARIA Crocker. Lizzette aware of EGD this afternoon and NPO after 0600.
[2022-02-26 06:27] LABS: ALANINE AMINOTRANSFERASE 8 U/L (12-78); ALBUMIN 2.8 G/DL (3.4-5.0); ALBUMIN/GLOBULIN RATIO 1.1 (1.1-1.5); ALKALINE PHOSPHATASE 35 IU/L (46-116); ANION GAP 6 (8-16); ASPARTATE AMINO TRANSFERASE 9 U/L (10-37); BILIRUBIN,TOTAL 0.4 MG/DL (0.1-1.0); BLOOD UREA NITROGEN 8 MG/DL (7-18); BUN/CREATININE RATIO 12.3 (6.6-38.0); CALCIUM 7.6 MG/DL (8.5-10.1); CHLORIDE 109 MMOL/L (99-107); CREATININE 0.65 MG/DL (0.40-0.90); GLUCOSE 84 MG/DL (70-104); PHOSPHORUS 3.9 MG/DL (2.3-4.5); POTASSIUM 3.4 MMOL/L (3.5-5.1); SODIUM 138 MMOL/L (135-145); TOTAL CARBON DIOXIDE 22.6 MMOL/L (24-32); TOTAL PROTEIN 5.3 G/DL (6.4-8.2); eGFR > 90 ML/MIN
[2022-02-26 06:55] LABS: PLATELET ESTIMATE NORMAL; TOTAL CELLS COUNTED 100
[2022-02-26] MEDS: docusate sod 100mg capsule PO SCH (07:39)
[2022-02-26] MEDS: K and/or MAG REPLACEMENT MC SCH (08:09)
[2022-02-26] MEDS: ciprofloxacin lact 400MG/200ML 200 ML IV SCH (09:42)
--- NOTE | 2022-02-26 10:25 | NUR ---
Paged Dr Salas because pt states the Morphine is not working for her pain. Will follow up.
[2022-02-26 10:52] LABS: HEMATOCRIT 36.1 % (35.0-45.0); HEMOGLOBIN 11.9 g/dl (12.0-16.0); MEAN CORPUSCULAR HEMOGLOBIN 28.7 PG (27.0-31.0); MEAN CORPUSCULAR HGB CONC 32.9 g/dL (33.0-36.5); MEAN CORPUSCULAR VOLUME 87.5 FL (78-98); MEAN PLATELET VOLUME 8.5 FL (7.4-10.4); PLATELET COUNT 182 X10'3 (140-440); RED BLOOD COUNT 4.12 X10'6 (4.20-5.60); RED CELL DISTRIBUTION WIDTH 12.9 % (11.5-14.5); WHITE BLOOD COUNT 2.9 X10'3 (4.5-11.0)
[2022-02-26] MEDS: ondansetron/PF 4mg/2ml inj IV PRN (11:01)
[2022-02-26 11:39] LABS: CLARITY,URINE CLOUDY (Clear); COLOR,URINE RED (Yellow); GLUCOSE, URINE NEGATIVE (Neg); LEUKOCYTE ESTERASE ,URINE NEGATIVE (Neg); NITRITES, URINE NEGATIVE (Neg); OCCULT BLOOD,URINE LARGE (Neg); PH,URINE 6.5 (4.8-8.0); PROTEIN,URINE NEGATIVE (Neg); UROBILINOGEN,URINE 0.2 E.U/dL (0.2-1.0)
[2022-02-26 11:49] LABS: KETONES,URINE TRACE mg/dl (Neg)
[2022-02-26 11:54] LABS: URINE AMPHETAMINE SCREEN NEGATIVE (Neg); URINE BARBITUATE SCREEN NEGATIVE (Neg); URINE BENZODIAZEPINES SCREEN NEGATIVE (Neg); URINE CANNABINOID SCREEN POSITIVE (Neg); URINE COCAINE SCREEN NEGATIVE (Neg); URINE METHADONE SCREEN NEGATIVE (Neg); URINE OPIATE SCREEN POSITIVE (Neg); URINE PHENCYCLIDINE SCREEN NEGATIVE (Neg)
[2022-02-26 11:55] LABS: UA COLLECTION TYPE CLN CATCH MIDSTREAM
[2022-02-26 11:59] LABS: BACTERIA,URINE FEW /HPF (Neg); MUCUS STRANDS NONE SEEN /LPF (Neg); RBC,URINE TNTC /HPF (0-2); SQUAMOUS EPITHELIAL CELL,UR FEW /LPF (FEW); WBC,URINE 0-4 /HPF (0-4)
--- NOTE | 2022-02-26 14:30 | NUR ---
Pt to gi lab via . Manager Community Relations notified.
[2022-02-26] MEDS ORDERED: MIDAZolam 1 MG/ML 5ML VIAL ONE (14:32)
[2022-02-26] MEDS ORDERED: fentaNYL/PF 50MCG/1 ML 2ML syringe ONE (14:32)
[2022-02-26] MEDS ORDERED: LIDOcaine Viscous 15ml cup ONE (14:32)
--- NOTE | 2022-02-26 15:47 | NUR ---
Malnutrition Consult: Pt admit DX GIB w/ abdominal pain, N/V, and hx peptic ulcer disease, ulcerative colitis, and prior heavy etoh sober 2 months per EMR. Pt NPO pending GI scope at this time per EMR. Pt has normal strength, no edema/wounds, appears WD/WN per ER note, and pending scaled wt this admit w/ prior reported wts from ER visits past 3 months stable per EMR. Pt reports 2-13 lb wt loss per EMR; likely wt fluctuations given DX but no scaled wt hx. Pt lacks minimum two malnutrition criteria at this time. Will monitor for further malnutrition criteria and nutrition intervention needs this admit. Addendum: 02/26/22 at [address] Amended: Links added.
--- NOTE | 2022-02-26 18:15 | NUR ---
Pt returned from GI lab via WC very angry and insisted on AMA. Papers signed, 2 IV's DC'd intact. Pt amb off unit with SO, who was advised not to let her drive d/t possible delayed onset of medications. All belongings take, Dr Salas was paged but did not respond
[2022-02-27] MEDS ORDERED: ONDA8TAB13 PO (22:28)
== END 2022-02-26 18:15 | disposition left against medical advice (07) | DRG 253 ==
LOC: ER 08:01 → ED HOLD 14:01 → PCU 3S 19:05
PROVIDERS: ADMIT Family Medicine; ATTEND Family Medicine
PROC: 0DJ08ZZ Inspection of Upper Intestinal Tract, Via Natural or Artificial Opening Endoscopic (ICD-10-PCS; principal; 2022-02-26)
DX: K92.0 Hematemesis (principal); K51.911 Ulcerative colitis, unspecified with rectal bleeding; Z53.29 Procedure and treatment not carried out because of patient's decision for other reasons; F17.210 Nicotine dependence, cigarettes, uncomplicated; G40.909 Epilepsy, unspecified, not intractable, without status epilepticus; F12.90 Cannabis use, unspecified, uncomplicated; F32.A Depression, unspecified; F41.9 Anxiety disorder, unspecified; K21.9 Gastro-esophageal reflux disease without esophagitis; Z82.49 Family history of ischemic heart disease and other diseases of the circulatory system; Z87.11 Personal history of peptic ulcer disease; Z88.8 Allergy status to other drugs, medicaments and biological substances; Z71.6 Tobacco abuse counseling
CPT/HCPCS: 36415; 43235; 74176; 80053; 80305; 81001; 81025; 83036; 83605; 83690; 83735; 84100; 84443; 85007; 85025; 85027; 85610; 86885; 86900; 86901; 87081; 96361; 96374; 96375; 99152; 99285; A4620; C9113; G0378; J0744; J1200; J2250; J2270; J2405; J2765; J3010; J3490; J7030; Q0163

== ENCOUNTER 2022-02-27 16:04 | Emergency (ER) | payer MEDICAID ==
[~2022-02-27] VITALS: Ht 152.4 cm; Wt 52.3 kg
[~2022-02-27 16:04] MED LIST changes: -ACET5SOL2 PO; -ALBU8.5H17 IH; -CITA20TA19 PO; -DIAZ5TAB PO; +DIPH25CA83 PO; -DIVA500T2 PO; -FAMO-128 PO; -FAMO20TA44 PO; -HYDR-3965 PO; -HYDR-4383 PO; -HYDR50CA5 PO; -IBUP-1985 PO; -IBUP-1986 PO; -LOPE2CAP PO; -METH-360 PO; -METO-292 PO; -NITR100C6 PO; +NO HOME MEDS; -OMEP20CA15 PO; -ONDA4TAB12 PO; -ONDA4TAB6 PO; -ONDA8TAB13 PO; -ONDA8TAB9 PO; -PANT-47 PO; -PROC-8 PO; -PROC25SU30 PR; -PROM25SU9 RC; -PROM25TA14 PO; -RANI-366 PO; -SUCR1ORA2 PO
[2022-02-27] MEDS ORDERED: ondansetron/PF 4mg/2ml inj IV ONE ×2 (16:20→18:20)
[2022-02-27] MEDS ORDERED: normal saline 1000ML IV soln IVB ONE (16:20)
[2022-02-27 16:43] LABS: CLARITY,URINE CLEAR (Clear); COLOR,URINE YELLOW (Yellow); GLUCOSE, URINE NEGATIVE (Neg); KETONES,URINE >=80 mg/dl (Neg); LEUKOCYTE ESTERASE ,URINE NEGATIVE (Neg); NITRITES, URINE NEGATIVE (Neg); OCCULT BLOOD,URINE LARGE (Neg); PROTEIN,URINE 30 mg/dl (Neg); UROBILINOGEN,URINE 0.2 E.U/dL (0.2-1.0)
[2022-02-27 16:43] LABS: BASOPHILS % (AUTO) 0.2 % (0-1); EOSINOPHILS % (AUTO) 0 % (0-6); HEMATOCRIT 43.3 % (35.0-45.0); HEMOGLOBIN 14.9 g/dl (12.0-16.0); LYMPHOCYTES # (AUTO) 0.5 X10'3 (1.1-4.8); LYMPHOCYTES % (AUTO) 10.5 % (21-51); MEAN CORPUSCULAR HEMOGLOBIN 29.5 PG (27.0-31.0); MEAN CORPUSCULAR HGB CONC 34.4 g/dL (33.0-36.5); MEAN CORPUSCULAR VOLUME 85.6 FL (78-98); MEAN PLATELET VOLUME 7.9 FL (7.4-10.4); MONOCYTES # (AUTO) 0.6 X10'3 (0-0.9); MONOCYTES % (AUTO) 13.6 % (2-12); NEUTROPHILS # (AUTO) 3.3 X10'3 (1.8-7.7); NEUTROPHILS % (AUTO) 75.7 % (42-75); PLATELET COUNT 232 X10'3 (140-440); RED BLOOD COUNT 5.06 X10'6 (4.20-5.60); RED CELL DISTRIBUTION WIDTH 12.8 % (11.5-14.5); WHITE BLOOD COUNT 4.3 X10'3 (4.5-11.0)
[2022-02-27 16:44] LABS: URINE HCG NEGATIVE (NEG)
[2022-02-27 16:47] LABS: UA COLLECTION TYPE CLN CATCH MIDSTREAM
[2022-02-27 16:48] LABS: BACTERIA,URINE FEW /HPF (Neg); MUCUS STRANDS FEW /LPF (Neg); RBC,URINE 20-50 /HPF (0-2); SQUAMOUS EPITHELIAL CELL,UR MANY /LPF (FEW); WBC,URINE NONE SEEN /HPF (0-4)
[2022-02-27 16:53] LABS: ALANINE AMINOTRANSFERASE 10 U/L (12-78); ALBUMIN 4.2 G/DL (3.4-5.0); ALBUMIN/GLOBULIN RATIO 1.2 (1.1-1.5); ALKALINE PHOSPHATASE 53 IU/L (46-116); ANION GAP 15 (8-16); ASPARTATE AMINO TRANSFERASE 12 U/L (10-37); BILIRUBIN,TOTAL 0.4 MG/DL (0.1-1.0); BLOOD UREA NITROGEN 7 MG/DL (7-18); BUN/CREATININE RATIO 9.5 (6.6-38.0); CALCIUM 8.8 MG/DL (8.5-10.1); CHLORIDE 101 MMOL/L (99-107); CREATININE 0.74 MG/DL (0.40-0.90); GLUCOSE 105 MG/DL (70-104); LIPASE 56 U/L (73-393); POTASSIUM 3.4 MMOL/L (3.5-5.1); SODIUM 138 MMOL/L (135-145); TOTAL CARBON DIOXIDE 22.5 MMOL/L (24-32); TOTAL PROTEIN 7.6 G/DL (6.4-8.2); eGFR > 90 ML/MIN
[2022-02-27] MEDS ORDERED: ketamine 10mg/ml 20ml inj 25 MG in normal saline 100ml IV soln 97.5 ML IV ONE (17:40)
--- NOTE | 2022-02-27 18:05 | NUR ---
PRESS LEADER went to cotton picker ketamine from the pharmacy.
--- NOTE | 2022-02-27 18:44 | NUR ---
tolerated ketamine drip.
[2022-02-27] MEDS ORDERED: haloperidol lactate 5mg/ml inj IM ONE (19:45)
[2022-02-27] MEDS ORDERED: diphenhydrAMINE 50 mg/ml inj IV ONE (19:45)
[2022-02-27] MEDS ORDERED: morphine 4 MG/ML inj SYRINge IV PRN (21:15)
[2022-02-27] MEDS ORDERED: ONDA8TAB13 PO (22:28)
[2022-02-27 22:33] VITALS: BP 116/74
== END 2022-02-27 22:36 | disposition home or self-care (01) ==
LOC: ER 16:04
DX: R11.15 Cyclical vomiting syndrome unrelated to migraine (principal); R11.2 Nausea with vomiting, unspecified; N93.9 Abnormal uterine and vaginal bleeding, unspecified; K21.9 Gastro-esophageal reflux disease without esophagitis; F41.9 Anxiety disorder, unspecified; F32.A Depression, unspecified; F12.90 Cannabis use, unspecified, uncomplicated; Z86.69 Personal history of other diseases of the nervous system and sense organs; Z87.11 Personal history of peptic ulcer disease; Z72.89 Other problems related to lifestyle; Z88.8 Allergy status to other drugs, medicaments and biological substances; Z79.899 Other long term (current) drug therapy
CPT/HCPCS: 36415; 80053; 81001; 81025; 83690; 85025; 96361; 96365; 96372; 96375; 96376; 99284; J1200; J1630; J2270; J2405; J3490; J7030; 96374

== ENCOUNTER 2022-02-28 12:13 | Emergency (ER) | payer MEDICAID ==
[~2022-02-28] VITALS: Ht 152.4 cm; Wt 52.0 kg
[~2022-02-28 12:13] MED LIST changes: +ACET5SOL2 PO; +ALBU8.5H17 IH; +CITA20TA19 PO; +DIAZ5TAB PO; +DIVA500T2 PO; +FAMO-128 PO; +FAMO20TA44 PO; +HYDR-3965 PO; +HYDR-4383 PO; +HYDR50CA5 PO; +IBUP-1985 PO; +IBUP-1986 PO; +LOPE2CAP PO; +METH-360 PO; +METO-292 PO; +NITR100C6 PO; +OMEP20CA15 PO; +ONDA4TAB12 PO; +ONDA4TAB6 PO; +ONDA8TAB13 PO; +ONDA8TAB9 PO; +PANT-47 PO; +PROC-8 PO; +PROC25SU30 PR; +PROM25SU9 RC; +PROM25TA14 PO; +RANI-366 PO; +SUCR1ORA2 PO
[2022-02-28 12:15] VITALS: BP 125/96
== END 2022-02-28 14:35 | disposition left against medical advice (07) ==
LOC: ER 12:14
DX: R68.84 Jaw pain (principal); Z53.21 Procedure and treatment not carried out due to patient leaving prior to being seen by health care provider

== ENCOUNTER 2022-03-01 07:39 | Emergency (ER) | payer MEDICAID ==
[~2022-03-01] VITALS: Ht 152.4 cm; Wt 52.3 kg
[~2022-03-01 07:39] MED LIST changes: -ACET5SOL2 PO; -ALBU8.5H17 IH; -CITA20TA19 PO; -DIAZ5TAB PO; -DIVA500T2 PO; -FAMO-128 PO; -FAMO20TA44 PO; -HYDR-3965 PO; -HYDR-4383 PO; -HYDR50CA5 PO; -IBUP-1985 PO; -IBUP-1986 PO; -LOPE2CAP PO; -METH-360 PO; -METO-292 PO; -NITR100C6 PO; -OMEP20CA15 PO; -ONDA4TAB12 PO; -ONDA4TAB6 PO; -ONDA8TAB9 PO; -PANT-47 PO; -PROC-8 PO; -PROC25SU30 PR; -PROM25SU9 RC; -PROM25TA14 PO; -RANI-366 PO; -SUCR1ORA2 PO
[2022-03-01 07:44] VITALS: BP 132/90
== END 2022-03-01 08:53 | disposition home or self-care (01) ==
LOC: ER 07:39
DX: G24.02 Drug induced acute dystonia (principal); T43.4X5A Adverse effect of butyrophenone and thiothixene neuroleptics, initial encounter; R11.15 Cyclical vomiting syndrome unrelated to migraine; Y92.89 Other specified places as the place of occurrence of the external cause; K21.9 Gastro-esophageal reflux disease without esophagitis; F32.9 Major depressive disorder, single episode, unspecified; F12.10 Cannabis abuse, uncomplicated; F41.9 Anxiety disorder, unspecified; Z88.8 Allergy status to other drugs, medicaments and biological substances; Z88.6 Allergy status to analgesic agent
CPT/HCPCS: 99282

== ENCOUNTER 2022-03-30 14:00 | Emergency (ER) | payer MEDICAID ==
[~2022-03-30] VITALS: Ht 152.4 cm; Wt 52.3 kg
[2022-03-30 14:12] VITALS: BP 129/87
[2022-03-30] MEDS ORDERED: proCHLORperazine 10 MG/2 ml inj IM ONE (14:25)
[2022-03-30] MEDS ORDERED: ketorolac trometh inj. 60 MG/2 ML VIAL IM ONE (14:25)
[2022-03-30] MEDS ORDERED: ketorolac trometh. 30mg/ml inj. IM ONE (14:25)
[2022-03-30 14:45] LABS: BASOPHILS % (AUTO) 0.4 % (0-1); EOSINOPHILS % (AUTO) 0.6 % (0-6); HEMATOCRIT 40.4 % (35.0-45.0); HEMOGLOBIN 13.8 g/dl (12.0-16.0); LYMPHOCYTES # (AUTO) 0.7 X10'3 (1.1-4.8); LYMPHOCYTES % (AUTO) 30.3 % (21-51); MEAN CORPUSCULAR HEMOGLOBIN 29.9 PG (27.0-31.0); MEAN CORPUSCULAR HGB CONC 34.2 g/dL (33.0-36.5); MEAN CORPUSCULAR VOLUME 87.4 FL (78-98); MEAN PLATELET VOLUME 7.6 FL (7.4-10.4); MONOCYTES # (AUTO) 0.4 X10'3 (0-0.9); MONOCYTES % (AUTO) 17.1 % (2-12); NEUTROPHILS # (AUTO) 1.2 X10'3 (1.8-7.7); NEUTROPHILS % (AUTO) 51.6 % (42-75); PLATELET COUNT 211 X10'3 (140-440); RED BLOOD COUNT 4.62 X10'6 (4.20-5.60); RED CELL DISTRIBUTION WIDTH 13.4 % (11.5-14.5); WHITE BLOOD COUNT 2.2 X10'3 (4.5-11.0)
[2022-03-30 15:02] LABS: ALANINE AMINOTRANSFERASE 12 U/L (12-78); ALBUMIN 3.9 G/DL (3.4-5.0); ALBUMIN/GLOBULIN RATIO 1.1 (1.1-1.5); ALKALINE PHOSPHATASE 52 IU/L (46-116); ANION GAP 7 (8-16); ASPARTATE AMINO TRANSFERASE 14 U/L (10-37); BILIRUBIN,TOTAL 0.4 MG/DL (0.1-1.0); BLOOD UREA NITROGEN 6 MG/DL (7-18); BUN/CREATININE RATIO 8.1 (6.6-38.0); CALCIUM 8.6 MG/DL (8.5-10.1); CHLORIDE 103 MMOL/L (99-107); CREATININE 0.74 MG/DL (0.40-0.90); GLUCOSE 86 MG/DL (70-104); POTASSIUM 3.9 MMOL/L (3.5-5.1); SODIUM 137 MMOL/L (135-145); TOTAL CARBON DIOXIDE 27.2 MMOL/L (24-32); TOTAL PROTEIN 7.3 G/DL (6.4-8.2); eGFR > 90 ML/MIN
[2022-03-30 15:11] LABS: PLATELET ESTIMATE NORMAL; POIKILOCYTOSIS 1+; TOTAL CELLS COUNTED 100; TOXIC VACUOLATION 1+
--- NOTE | 2022-03-30 17:21 | NUR ---
PT MICAELA. PT STATED SHE NEEDS TO LEAVE AND LET HER DOGS OUT. INFORMED
--- NOTE | 2022-03-30 17:25 | NUR ---
PT SEEN BY STAFF LEAVING THE ER WITH S/O.
== END 2022-03-30 17:22 | disposition left against medical advice (07) ==
LOC: ER 14:00
DX: B34.9 Viral infection, unspecified (principal); Z20.822 Contact with and (suspected) exposure to COVID-19; R05.9 Cough, unspecified; R11.2 Nausea with vomiting, unspecified; R19.7 Diarrhea, unspecified; R51.9 Headache, unspecified; K21.9 Gastro-esophageal reflux disease without esophagitis; F41.9 Anxiety disorder, unspecified; F32.A Depression, unspecified; F12.90 Cannabis use, unspecified, uncomplicated; Z86.69 Personal history of other diseases of the nervous system and sense organs; Z87.11 Personal history of peptic ulcer disease; Z72.89 Other problems related to lifestyle; Z88.8 Allergy status to other drugs, medicaments and biological substances; Z79.899 Other long term (current) drug therapy
CPT/HCPCS: 36415; 71045; 80053; 85007; 85025; 87502; 87503; 87635; 96372; 99284; C9803; J0780; J1885

== ENCOUNTER 2022-04-27 10:37 | Emergency (ER) | payer MEDICAID ==
[~2022-04-27] VITALS: Ht 152.4 cm; Wt 49.5 kg
[2022-04-27 10:58] LABS: UA COLLECTION TYPE CLN CATCH MIDSTREAM
[2022-04-27 10:59] LABS: CLARITY,URINE SLIGHTLY CLOUDY (Clear); COLOR,URINE YELLOW (Yellow); GLUCOSE, URINE NEGATIVE (Neg); KETONES,URINE 15 mg/dl (Neg); LEUKOCYTE ESTERASE ,URINE SMALL (Neg); NITRITES, URINE POSITIVE (Neg); OCCULT BLOOD,URINE MODERATE (Neg); PROTEIN,URINE 30 mg/dl (Neg); UROBILINOGEN,URINE 0.2 E.U/dL (0.2-1.0)
[2022-04-27 10:59] LABS: BASOPHILS % (AUTO) 0.3 % (0-1); EOSINOPHILS % (AUTO) 0.7 % (0-6); HEMATOCRIT 42.5 % (35.0-45.0); HEMOGLOBIN 14.5 g/dl (12.0-16.0); LYMPHOCYTES # (AUTO) 1.4 X10'3 (1.1-4.8); LYMPHOCYTES % (AUTO) 24.4 % (21-51); MEAN CORPUSCULAR VOLUME 88.1 FL (78-98); MEAN PLATELET VOLUME 7.4 FL (7.4-10.4); MONOCYTES # (AUTO) 0.6 X10'3 (0-0.9); MONOCYTES % (AUTO) 9.6 % (2-12); NEUTROPHILS # (AUTO) 3.7 X10'3 (1.8-7.7); PLATELET COUNT 257 X10'3 (140-440); RED BLOOD COUNT 4.82 X10'6 (4.20-5.60); WHITE BLOOD COUNT 5.7 X10'3 (4.5-11.0)
[2022-04-27 11:00] LABS: URINE HCG NEGATIVE (NEG)
[2022-04-27] MEDS ORDERED: normal saline 1000ml 1,000 ML IV ONE (11:05)
[2022-04-27] MEDS ORDERED: ketorolac tromethamine 15mg/ml inj. IV ONE (11:05)
[2022-04-27 11:08] LABS: ALANINE AMINOTRANSFERASE 17 U/L (12-78); ALBUMIN 3.7 G/DL (3.4-5.0); ALBUMIN/GLOBULIN RATIO 0.9 (1.1-1.5); ALKALINE PHOSPHATASE 64 IU/L (46-116); ANION GAP 9 (8-16); ASPARTATE AMINO TRANSFERASE 14 U/L (10-37); BILIRUBIN,TOTAL 0.8 MG/DL (0.1-1.0); BLOOD UREA NITROGEN 7 MG/DL (7-18); BUN/CREATININE RATIO 10.4 (6.6-38.0); CALCIUM 9.1 MG/DL (8.5-10.1); CHLORIDE 104 MMOL/L (99-107); CREATININE 0.67 MG/DL (0.40-0.90); GLUCOSE 100 MG/DL (70-104); LIPASE < 50 U/L (73-393); POTASSIUM 4.4 MMOL/L (3.5-5.1); SODIUM 138 MMOL/L (135-145); TOTAL CARBON DIOXIDE 25.2 MMOL/L (24-32); TOTAL PROTEIN 7.6 G/DL (6.4-8.2); eGFR > 90 ML/MIN
--- NOTE | 2022-04-27 11:18 | NUR ---
pt to ct
[2022-04-27 11:20] LABS: BACTERIA,URINE 1+ /HPF (Neg); RBC,URINE 0-2 /HPF (0-2); SQUAMOUS EPITHELIAL CELL,UR FEW /LPF (FEW); WBC CLUMPS,URINE FEW /HPF (NEGATIVE)
[2022-04-27] MEDS ORDERED: HYDROcodone/acetaminophen 5mg/325mg tablet PO ONE (12:05)
[2022-04-27] MEDS ORDERED: ondansetron 4mg rapidly disintigrating tab PO ONE (12:05)
[2022-04-27] MEDS ORDERED: cephalexin 250mg capsule PO ONE (12:30)
[2022-04-27] MEDS ORDERED: CEPH250T PO (12:33)
[2022-04-27 12:47] VITALS: BP 101/74
== END 2022-04-27 12:50 | disposition home or self-care (01) ==
LOC: ER 10:38
DX: N39.0 Urinary tract infection, site not specified (principal); K21.9 Gastro-esophageal reflux disease without esophagitis; F41.9 Anxiety disorder, unspecified; F12.10 Cannabis abuse, uncomplicated; Z88.6 Allergy status to analgesic agent; Z79.899 Other long term (current) drug therapy; Z88.8 Allergy status to other drugs, medicaments and biological substances; Z79.2 Long term (current) use of antibiotics
CPT/HCPCS: 36415; 74176; 80053; 81001; 81025; 83690; 85025; 87088; 87186; 96374; 99284; J1885; J7030; 87077

== ENCOUNTER 2022-05-01 08:45 | Emergency (ER) | payer MEDICAID ==
[~2022-05-01] VITALS: Ht 152.4 cm; Wt 47.7 kg
[~2022-05-01 08:45] MED LIST changes: +CEPH250T PO
[2022-05-01 09:32] VITALS: BP 137/98
[2022-05-01 10:01] LABS: BASOPHILS % (AUTO) 0.3 % (0-1); EOSINOPHILS % (AUTO) 0.1 % (0-6); HEMATOCRIT 39.6 % (35.0-45.0); HEMOGLOBIN 13.4 g/dl (12.0-16.0); LYMPHOCYTES # (AUTO) 0.8 X10'3 (1.1-4.8); MEAN CORPUSCULAR HEMOGLOBIN 29.5 PG (27.0-31.0); MEAN CORPUSCULAR HGB CONC 33.9 g/dL (33.0-36.5); MEAN PLATELET VOLUME 7.3 FL (7.4-10.4); MONOCYTES # (AUTO) 0.9 X10'3 (0-0.9); NEUTROPHILS # (AUTO) 9.1 X10'3 (1.8-7.7); NEUTROPHILS % (AUTO) 84.6 % (42-75); PLATELET COUNT 283 X10'3 (140-440); RED BLOOD COUNT 4.55 X10'6 (4.20-5.60); RED CELL DISTRIBUTION WIDTH 14.1 % (11.5-14.5); WHITE BLOOD COUNT 10.8 X10'3 (4.5-11.0)
[2022-05-01 10:20] LABS: ALANINE AMINOTRANSFERASE 16 U/L (12-78); ALBUMIN 3.4 G/DL (3.4-5.0); ALBUMIN/GLOBULIN RATIO 0.9 (1.1-1.5); ALKALINE PHOSPHATASE 71 IU/L (46-116); ANION GAP 9 (8-16); ASPARTATE AMINO TRANSFERASE 13 U/L (10-37); BILIRUBIN,TOTAL 0.8 MG/DL (0.1-1.0); BLOOD UREA NITROGEN 4 MG/DL (7-18); BUN/CREATININE RATIO 5.7 (6.6-38.0); CALCIUM 8.8 MG/DL (8.5-10.1); CHLORIDE 105 MMOL/L (99-107); GLUCOSE 125 MG/DL (70-104); LIPASE < 50 U/L (73-393); POTASSIUM 3.7 MMOL/L (3.5-5.1); SODIUM 140 MMOL/L (135-145); TOTAL CARBON DIOXIDE 26.5 MMOL/L (24-32); eGFR > 90 ML/MIN
[2022-05-01] MEDS ORDERED: ondansetron/PF 4mg/2ml inj IM ONE (12:15)
[2022-05-01] MEDS ORDERED: metoclopramide 5 mg/ml inj IM ONE (12:20)
[2022-05-01] MEDS ORDERED: diphenhydrAMINE 50 mg/ml inj IM ONE (12:20)
== END 2022-05-01 13:08 | disposition home or self-care (01) ==
LOC: ER 08:46
DX: R11.15 Cyclical vomiting syndrome unrelated to migraine (principal); K21.9 Gastro-esophageal reflux disease without esophagitis; F31.9 Bipolar disorder, unspecified; F12.10 Cannabis abuse, uncomplicated; Z88.8 Allergy status to other drugs, medicaments and biological substances; Z79.899 Other long term (current) drug therapy; Z88.1 Allergy status to other antibiotic agents
CPT/HCPCS: 36415; 80053; 83690; 85025; 96372; 99284; J1200; J2405; J2765

== ENCOUNTER 2022-07-04 18:09 | Emergency (ER) | payer MEDICAID ==
[~2022-07-04] VITALS: Ht 152.4 cm; Wt 48.2 kg
[~2022-07-04 18:09] MED LIST changes: -CEPH250T PO
[2022-07-04 18:16] VITALS: BP 135/96
[2022-07-04] MEDS ORDERED: dexamethasone sod phosphate 10mg/ml inj IM STA (19:52)
[2022-07-04] MEDS ORDERED: albuterol 2.5 MG/3 ML nebule NEB ONE (19:55)
--- NOTE | 2022-07-04 20:43 | NUR ---
RT AT BS
[2022-07-04] MEDS ORDERED: penicillin V potassium 500mg tablet PO ONE (20:55)
[2022-07-04] MEDS ORDERED: PENI500T2 PO (20:57)
== END 2022-07-04 21:11 | disposition home or self-care (01) ==
LOC: ER 18:10
DX: J02.0 Streptococcal pharyngitis (principal); Z20.822 Contact with and (suspected) exposure to COVID-19; R05.9 Cough, unspecified; R06.02 Shortness of breath; K21.9 Gastro-esophageal reflux disease without esophagitis; F41.9 Anxiety disorder, unspecified; F32.A Depression, unspecified; F12.90 Cannabis use, unspecified, uncomplicated; Z86.69 Personal history of other diseases of the nervous system and sense organs; Z87.11 Personal history of peptic ulcer disease; Z72.89 Other problems related to lifestyle; Z88.8 Allergy status to other drugs, medicaments and biological substances; Z79.2 Long term (current) use of antibiotics; Z79.899 Other long term (current) drug therapy
CPT/HCPCS: 71045; 87635; 87880; 94640; 96372; 99284; C9803; J1100; 94760

== ENCOUNTER 2022-07-29 16:15 | Emergency (ER) | payer MEDICAID ==
[~2022-07-29] VITALS: Ht 152.4 cm; Wt 50.0 kg
[2022-07-29 17:01] VITALS: BP 132/96
== END 2022-07-29 20:15 | disposition left against medical advice (07) ==
LOC: ER 16:16
DX: R10.9 Unspecified abdominal pain (principal); Z53.21 Procedure and treatment not carried out due to patient leaving prior to being seen by health care provider

== ENCOUNTER 2023-05-17 15:35 | Emergency (ER) | payer MEDICAID ==
[~2023-05-17] VITALS: Ht 152.4 cm; Wt 43.8 kg
[2023-05-17 15:42] VITALS: BP 140/99
[2023-05-17] MEDS ORDERED: LORazepam 1 MG tablet PO ONE (16:45)
== END 2023-05-17 17:02 | disposition home or self-care (01) ==
LOC: ER 15:35
DX: M79.641 Pain in right hand (principal); K21.9 Gastro-esophageal reflux disease without esophagitis; F12.90 Cannabis use, unspecified, uncomplicated; Z88.8 Allergy status to other drugs, medicaments and biological substances; Z88.1 Allergy status to other antibiotic agents; Z79.899 Other long term (current) drug therapy
CPT/HCPCS: 73130; 99283; A6449

== ENCOUNTER 2023-10-17 18:41 | Emergency (ER) | payer MEDICAID ==
[~2023-10-17] VITALS: Ht 152.4 cm; Wt 51.7 kg
[2023-10-17 18:47] VITALS: BP 115/74; PULSE 85; RESP 16; TEMP 98; O2SAT 100
== END 2023-10-17 20:28 | disposition home or self-care (01) ==
LOC: ER 18:42
DX: R10.9 Unspecified abdominal pain (principal); R11.2 Nausea with vomiting, unspecified; F12.90 Cannabis use, unspecified, uncomplicated; Z72.89 Other problems related to lifestyle; Z88.8 Allergy status to other drugs, medicaments and biological substances; Z79.899 Other long term (current) drug therapy
CPT/HCPCS: 99281

== ENCOUNTER 2024-03-01 09:47 | Emergency (ER) | payer MEDICAID ==
[~2024-03-01] VITALS: Ht 152.4 cm; Wt 51.3 kg
[2024-03-01 10:16] VITALS: BP 150/104; PULSE 97; RESP 18; TEMP 97.4; O2SAT 100
[2024-03-01 10:58] LABS: BASOPHILS % (AUTO) 0.5 % (0-1); EOSINOPHILS % (AUTO) 0.5 % (0-6); HEMATOCRIT 42.5 % (35.0-45.0); HEMOGLOBIN 14.6 g/dl (12.0-16.0); LYMPHOCYTES # (AUTO) 1.8 X10'3 (1.1-4.8); LYMPHOCYTES % (AUTO) 34.5 % (21-51); MEAN CORPUSCULAR HEMOGLOBIN 33.9 PG (27.0-31.0); MEAN CORPUSCULAR HGB CONC 34.3 g/dL (33.0-36.5); MEAN CORPUSCULAR VOLUME 98.7 FL (78-98); MEAN PLATELET VOLUME 7.1 FL (7.4-10.4); MONOCYTES # (AUTO) 0.5 X10'3 (0-0.9); MONOCYTES % (AUTO) 8.7 % (2-12); NEUTROPHILS # (AUTO) 2.9 X10'3 (1.8-7.7); NEUTROPHILS % (AUTO) 55.8 % (42-75); PLATELET COUNT 266 X10'3 (140-440); WHITE BLOOD COUNT 5.2 X10'3 (4.5-11.0)
[2024-03-01 11:19] LABS: ALBUMIN 3.8 G/DL (3.4-5.0); ANION GAP 8 (8-16); BLOOD UREA NITROGEN 6 MG/DL (7-18); BUN/CREATININE RATIO 9.7 (10.0-20.0); CALCIUM 8.8 MG/DL (8.5-10.1); CHLORIDE 101 MMOL/L (99-107); CREATININE 0.62 MG/DL (0.40-0.90); GLUCOSE 104 MG/DL (70-104); POTASSIUM 3.3 MMOL/L (3.5-5.1); PRO BRAIN NATRIURETIC PEPTIDE 39 PG/ML (0-125); SODIUM 138 MMOL/L (135-145); eCRCL 99 ML/MIN; eGFR > 90 ML/MIN
[2024-03-01] MEDS ORDERED: CLON0.1T2 PO (14:19)
[2024-03-01] MEDS ORDERED: GABA300C PO (14:19)
== END 2024-03-01 14:38 | disposition home or self-care (01) ==
LOC: ER 09:47
DX: F10.930 Alcohol use, unspecified with withdrawal, uncomplicated (principal); R06.00 Dyspnea, unspecified; F41.9 Anxiety disorder, unspecified; F32.A Depression, unspecified; F12.90 Cannabis use, unspecified, uncomplicated; Z88.8 Allergy status to other drugs, medicaments and biological substances; Z79.899 Other long term (current) drug therapy; Z79.2 Long term (current) use of antibiotics
CPT/HCPCS: 36415; 71045; 80048; 83880; 84484; 85025; 93005; 99285

== ENCOUNTER 2024-03-25 12:50 | Emergency (ER) | payer MEDICAID ==
[~2024-03-25] VITALS: Ht 154.9 cm; Wt 78.9 kg
[~2024-03-25 12:50] MED LIST changes: +CLON0.1T2 PO; +GABA300C PO
[2024-03-25 13:06] LABS: BILIRUBIN,URINE NEGATIVE (Neg); CLARITY,URINE CLEAR (Clear); COLOR,URINE YELLOW (Yellow); GLUCOSE, URINE NEGATIVE (Neg); KETONES,URINE NEGATIVE (Neg); LEUKOCYTE ESTERASE ,URINE NEGATIVE (Neg); NITRITES, URINE NEGATIVE (Neg); OCCULT BLOOD,URINE TRACE-INTACT (Neg); PH,URINE 5.5 (4.8-8.0); PROTEIN,URINE NEGATIVE (Neg); URINE HCG NEGATIVE (NEG); UROBILINOGEN,URINE 0.2 E.U/dL (0.2-1.0)
[2024-03-25 13:07] LABS: UA COLLECTION TYPE CLN CATCH MIDSTREAM
[2024-03-25 13:21] LABS: BACTERIA,URINE FEW /HPF (Neg); RBC,URINE 0-2 /HPF (0-2); SQUAMOUS EPITHELIAL CELL,UR MANY /LPF (FEW); TRANSITIONAL EPI CELLS,URINE FEW /HPF; WBC,URINE 0-4 /HPF (0-4)
[2024-03-25 14:05] LABS: BASOPHILS % (AUTO) 0.3 % (0-1); EOSINOPHILS # (AUTO) 0.2 X10'3 (0-0.9); EOSINOPHILS % (AUTO) 2.3 % (0-6); HEMATOCRIT 36.6 % (35.0-45.0); HEMOGLOBIN 12.4 g/dl (12.0-16.0); LYMPHOCYTES % (AUTO) 24.7 % (21-51); MEAN CORPUSCULAR HEMOGLOBIN 32.4 PG (27.0-31.0); MEAN CORPUSCULAR HGB CONC 33.9 g/dL (33.0-36.5); MEAN CORPUSCULAR VOLUME 95.8 FL (78-98); MEAN PLATELET VOLUME 7.8 FL (7.4-10.4); MONOCYTES # (AUTO) 0.9 X10'3 (0-0.9); MONOCYTES % (AUTO) 10.7 % (2-12); PLATELET COUNT 319 X10'3 (140-440); RED BLOOD COUNT 3.82 X10'6 (4.20-5.60); WHITE BLOOD COUNT 8.2 X10'3 (4.5-11.0)
[2024-03-25 14:07] LABS: ALANINE AMINOTRANSFERASE 32 U/L (12-78); ALBUMIN 3.3 G/DL (3.4-5.0); ALKALINE PHOSPHATASE 129 IU/L (46-116); ANION GAP 6 (8-16); ASPARTATE AMINO TRANSFERASE 26 U/L (10-37); BILIRUBIN,TOTAL 0.4 MG/DL (0.1-1.0); BLOOD UREA NITROGEN 9 MG/DL (7-18); BUN/CREATININE RATIO 13.6 (10.0-20.0); CALCIUM 8.7 MG/DL (8.5-10.1); CHLORIDE 104 MMOL/L (99-107); CREATININE 0.66 MG/DL (0.40-0.90); GLUCOSE 98 MG/DL (70-104); LIPASE 30 U/L (16-77); POTASSIUM 3.7 MMOL/L (3.5-5.1); SODIUM 138 MMOL/L (135-145); TOTAL CARBON DIOXIDE 27.9 MMOL/L (24-32); TOTAL PROTEIN 6.6 G/DL (6.4-8.2); eCRCL 97 ML/MIN; eGFR > 90 ML/MIN
[2024-03-25] MEDS: ondansetron/PF 4mg/2ml inj IV ONE (14:11)
[2024-03-25] MEDS: normal saline 1000ML IV soln IVB ONE (14:11)
[2024-03-25] MEDS: morphine 4 MG/ML inj SYRINge IV ONE ×3 (14:12→15:49)
[2024-03-25] MEDS: diazepam inj 5 MG/ML inj. IV ONE (14:12)
[2024-03-25] MEDS ORDERED: iohexol 300mg/ml 100ml inj. ONE (14:13)
[2024-03-25] MEDS: normal saline 1000ml 1,000 ML IV ONE (15:18)
[2024-03-25 15:19] VITALS: BP 103/72
[2024-03-25] MEDS ORDERED: ONDA4TAB12 PO (15:34)
[2024-03-25] MEDS ORDERED: ACET-2119 PO (15:36)
[2024-03-25 15:59] VITALS: PULSE 83; RESP 14; TEMP 98.3; O2SAT 97
== END 2024-03-25 16:06 | disposition home or self-care (01) ==
LOC: ER 12:50
DX: R91.1 Solitary pulmonary nodule (principal); K52.89 Other specified noninfective gastroenteritis and colitis; K21.9 Gastro-esophageal reflux disease without esophagitis; F12.90 Cannabis use, unspecified, uncomplicated; Z88.8 Allergy status to other drugs, medicaments and biological substances; Z79.899 Other long term (current) drug therapy
CPT/HCPCS: 36415; 74177; 80053; 81001; 81025; 83605; 83690; 84145; 85025; 87040; 96361; 96374; 96375; 96376; 99285; J2270; J2405; J3360; J3490; J7030; Q9967

== ENCOUNTER 2024-03-26 13:55 | Emergency (ER) | payer MEDICAID ==
[~2024-03-26] VITALS: Ht 154.9 cm; Wt 57.5 kg
[~2024-03-26 13:55] MED LIST changes: +ACET-2119 PO; +ONDA4TAB12 PO
[2024-03-26 14:24] VITALS: BP 98/61; PULSE 71; RESP 18; TEMP 97.5; O2SAT 98
== END 2024-03-26 16:26 | disposition left against medical advice (07) ==
LOC: ER 13:56
DX: R10.9 Unspecified abdominal pain (principal); K92.0 Hematemesis; Z53.21 Procedure and treatment not carried out due to patient leaving prior to being seen by health care provider

== ENCOUNTER 2024-03-27 13:45 | Emergency (ER) | payer MEDICAID | END 2024-03-27 14:53 | disposition left against medical advice (07) | LOC: ER 13:46 | DX: R69 Illness, unspecified (principal); Z53.21 Procedure and treatment not carried out due to patient leaving prior to being seen by health care provider ==

== ENCOUNTER 2024-05-10 15:10 | Emergency (ER) | payer MEDICAID ==
[~2024-05-10] VITALS: Ht 162.6 cm; Wt 65.0 kg
[~2024-05-10 15:10] MED LIST changes: -ACET-2119 PO; +ONDA-243 PO; +ONDA-245 PO; -ONDA4TAB12 PO; -ONDA8TAB13 PO
[2024-05-10 15:13] VITALS: TEMP 97.9
[2024-05-10] MEDS ORDERED: dicyclomine 10 MG capsule PO ONE (15:25)
[2024-05-10] MEDS ORDERED: ketorolac trometh. 30mg/ml inj. IM ONE ×3 (15:25→15:50)
[2024-05-10] MEDS ORDERED: ondansetron 4mg rapidly disintigrating tab PO ONE (15:25)
[2024-05-10] MEDS ORDERED: ketorolac tromethamine 15mg/ml inj. IV ONE (15:55)
[2024-05-10] MEDS: ondansetron/PF 4mg/2ml inj IV ONE (16:01)
[2024-05-10] MEDS: diphenhydrAMINE 50 mg/ml inj IV ONE ×2 (16:01→16:53)
[2024-05-10 16:02] LABS: BASOPHILS % (AUTO) 0.3 % (0-1); EOSINOPHILS % (AUTO) 0 % (0-6); HEMATOCRIT 43.2 % (35.0-45.0); HEMOGLOBIN 14.4 g/dl (12.0-16.0); LYMPHOCYTES # (AUTO) 1.3 X10'3 (1.1-4.8); LYMPHOCYTES % (AUTO) 12.1 % (21-51); MEAN CORPUSCULAR HEMOGLOBIN 28.9 PG (27.0-31.0); MEAN CORPUSCULAR HGB CONC 33.2 g/dL (33.0-36.5); MEAN CORPUSCULAR VOLUME 86.9 FL (78-98); MEAN PLATELET VOLUME 6.9 FL (7.4-10.4); MONOCYTES # (AUTO) 0.6 X10'3 (0-0.9); NEUTROPHILS # (AUTO) 8.5 X10'3 (1.8-7.7); NEUTROPHILS % (AUTO) 81.6 % (42-75); PLATELET COUNT 382 X10'3 (140-440); RED BLOOD COUNT 4.97 X10'6 (4.20-5.60); RED CELL DISTRIBUTION WIDTH 13.7 % (11.5-14.5); WHITE BLOOD COUNT 10.5 X10'3 (4.5-11.0)
[2024-05-10] MEDS: normal saline 1000ml 1,000 ML IV ONE ×2 (16:02→16:53)
[2024-05-10] MEDS: ketorolac trometh. 30mg/ml inj. IV ONE (16:03)
[2024-05-10 16:18] LABS: HCG SERUM QL NEGATIVE
[2024-05-10 16:23] LABS: ALANINE AMINOTRANSFERASE 25 U/L (12-78); ALBUMIN 4.2 G/DL (3.4-5.0); ALBUMIN/GLOBULIN RATIO 1.1 (1.1-1.5); ALKALINE PHOSPHATASE 95 IU/L (46-116); ANION GAP 14 (8-16); ASPARTATE AMINO TRANSFERASE 19 U/L (10-37); BILIRUBIN,TOTAL 0.8 MG/DL (0.1-1.0); BLOOD UREA NITROGEN 8 MG/DL (7-18); BUN/CREATININE RATIO 10.7 (10.0-20.0); CALCIUM 9.8 MG/DL (8.5-10.1); CHLORIDE 101 MMOL/L (99-107); CREATININE 0.75 MG/DL (0.40-0.90); GLUCOSE 133 MG/DL (70-104); LIPASE 20 U/L (16-77); POTASSIUM 3.3 MMOL/L (3.5-5.1); SODIUM 138 MMOL/L (135-145); TOTAL CARBON DIOXIDE 22.6 MMOL/L (24-32); TOTAL PROTEIN 8.2 G/DL (6.4-8.2); eCRCL 98 ML/MIN; eGFR > 90 ML/MIN
[2024-05-10] MEDS: diazepam inj 5 MG/ML inj. IV ONE (16:52)
[2024-05-10] MEDS: haloperidol lactate 5mg/ml inj IM ONE (16:53)
[2024-05-10] MEDS: LORazepam 2 mg/ml vial IV ONE (17:52)
[2024-05-10 18:00] VITALS: BP 93/52; PULSE 67; RESP 16; O2SAT 95
== END 2024-05-10 18:24 | disposition home or self-care (01) ==
LOC: ER 15:10
DX: R11.2 Nausea with vomiting, unspecified (principal); R10.84 Generalized abdominal pain; K21.9 Gastro-esophageal reflux disease without esophagitis; F41.9 Anxiety disorder, unspecified; F32.A Depression, unspecified; M19.90 Unspecified osteoarthritis, unspecified site; F12.90 Cannabis use, unspecified, uncomplicated; Z72.89 Other problems related to lifestyle; Z88.8 Allergy status to other drugs, medicaments and biological substances; Z79.899 Other long term (current) drug therapy
CPT/HCPCS: 36415; 80053; 83690; 84703; 85025; 96361; 96372; 96374; 96375; 96376; 99284; J1200; J1630; J1885; J2060; J2405; J3360; J7030; 96360

== ENCOUNTER 2024-06-30 11:37 | Emergency (ER) | payer MEDICAID ==
[~2024-06-30] VITALS: Ht 152.4 cm; Wt 56.8 kg
[~2024-06-30 11:37] MED LIST changes: -DIPH25CA83 PO; -NO HOME MEDS; -ONDA-243 PO; -ONDA-245 PO; +PRAZ1CAP5 PO
--- NOTE | 2024-06-30 11:53 | NUR ---
TELEPHONE CALL TO POISON CONTROL FOR ADVICE WITH SEROQUEL OD AND MULTI-DRUG/ETOH COMBINATION. SUGGESTIONS FROM POISON CONTROL INCLUDE PLACING PATIENT ON CERTIFIED PATHOLOGY ASSISTANT, WATCH FOR PROLONGED QTc and QRS interval, CHECK TOXICOLOGY PANEL, INCLUDING ETOH, SALICYLATE AND ACETAMINOPHEN LEVELS, LABWORK WITH MAGNESIUM, CALCIUM, AND POTASSIUM LEVELS, AND EKG. WATCH FOR SEIZURE ACTIVITY AND TREAT WITH BENZOS NEEDED. EKG SHOULD BE REPEATED EVERY 4-6 HOURS. PROVIDE HYDRATION AND MVI SUPPLEMENT. OBTAIN BLOOD GAS IF PATIENT IS ACIDOTIC AND REQUIRING NA BICARB. CERTIFIED PATHOLOGY ASSISTANT SHOULD BE MAINTAINED FOR AT LEAST 6 HOURS IF THE SEROQUEL WAS IMMEDIATE RELEASE OR FOR 12 HOURS IF THE SEROQUEL WAS EXTENDED RELEASE. CONTACT POISON CONTROL FOR ANY QUESTIONS OR WORSENING OF PATIENT CONDITION.
[2024-06-30] MEDS: normal saline 1000ML IV soln IVB ONE (11:58)
[2024-06-30 12:21] LABS: BASOPHILS % (AUTO) 0.5 % (0-1); EOSINOPHILS % (AUTO) 0.7 % (0-6); HEMOGLOBIN 13.1 g/dl (12.0-16.0); LYMPHOCYTES # (AUTO) 1.4 X10'3 (1.1-4.8); MEAN CORPUSCULAR HEMOGLOBIN 28.9 PG (27.0-31.0); MEAN CORPUSCULAR HGB CONC 33.5 g/dL (33.0-36.5); MEAN CORPUSCULAR VOLUME 86.3 FL (78-98); MEAN PLATELET VOLUME 7.4 FL (7.4-10.4); MONOCYTES # (AUTO) 0.6 X10'3 (0-0.9); MONOCYTES % (AUTO) 10.1 % (2-12); NEUTROPHILS # (AUTO) 3.9 X10'3 (1.8-7.7); NEUTROPHILS % (AUTO) 64.7 % (42-75); PLATELET COUNT 263 X10'3 (140-440); RED BLOOD COUNT 4.52 X10'6 (4.20-5.60); RED CELL DISTRIBUTION WIDTH 15.9 % (11.5-14.5)
[2024-06-30 12:25] LABS: ACETAMINOPHEN < 2.0 UG/ML (10-30); ALBUMIN 3.2 G/DL (3.4-5.0); ANION GAP 16 (8-16); BLOOD UREA NITROGEN 6 MG/DL (7-18); BUN/CREATININE RATIO 10.9 (10.0-20.0); CALCIUM 8.3 MG/DL (8.5-10.1); CHLORIDE 108 MMOL/L (99-107); CREATININE 0.55 MG/DL (0.40-0.90); ETHANOL 83 MG/DL (<10); GLUCOSE 92 MG/DL (70-104); MAGNESIUM 1.5 MG/DL (1.5-2.4); SALICYLATE 2.5 MG/DL (4.0-20.0); SODIUM 144 MMOL/L (135-145); eCRCL 111 ML/MIN; eGFR > 90 ML/MIN
--- NOTE | 2024-06-30 12:25 | NUR ---
Seizure pads placed
[2024-06-30 12:28] LABS: POTASSIUM 2.8 MMOL/L (3.5-5.1)
[2024-06-30] MEDS ORDERED: magnesium sulf-water 4G/100mL 100 ML IV PRN (12:30)
[2024-06-30] MEDS ORDERED: potassium Cl 40MEQ/270ML bag 250 ML IV PRN (12:30)
[2024-06-30] MEDS ORDERED: potassium Cl 20 mEq SR tablet PO PRN (12:30)
[2024-06-30] MEDS ORDERED: magnesium sulf-water 2g/50mL 50 ML IV PRN (12:30)
[2024-06-30] MEDS ORDERED: potassium Cl 20mEq/100mL bag 100 ML IV PRN (12:30)
[2024-06-30] MEDS ORDERED: potassium CL 10mEq/100ml bag 100 ML IV PRN (12:30)
--- NOTE | 2024-06-30 12:30 | NUR ---
informed the charge brenton that pt is drowsy but higher risk on suicide screening and aso risk for elopement.
--- NOTE | 2024-06-30 12:51 | NUR ---
1-to-1 sitter (gyroscope technicianyang Cox) at bedside.
[2024-06-30] MEDS: potassium Cl 40MEQ/1/2NS 520ml 520 ML IV PRN (13:03)
[2024-06-30] MEDS: normal saline 1000ml 1,000 ML IV ONE (13:21)
--- NOTE | 2024-06-30 14:03 | NUR ---
Brooke soria remains at bedside 1:1.
--- NOTE | 2024-06-30 14:40 | NUR ---
Family at bedside asked mother what patient has taken to harm herself ?as per mother she has taken 30 tab of serequel not sure if its immediate release or extended release ?pt mother stated she will go check patient car and check the bottle of meds and call us.
--- NOTE | 2024-06-30 16:32 | NUR ---
order 12 lead ekg per poision control.
[2024-06-30 16:39] LABS: URINE HCG NEGATIVE (NEG)
[2024-06-30 16:48] LABS: URINE AMPHETAMINE SCREEN POSITIVE (Neg); URINE BARBITUATE SCREEN NEGATIVE (Neg); URINE BENZODIAZEPINES SCREEN NEGATIVE (Neg); URINE CANNABINOID SCREEN POSITIVE (Neg); URINE COCAINE SCREEN POSITIVE (Neg); URINE METHADONE SCREEN NEGATIVE (Neg); URINE OPIATE SCREEN NEGATIVE (Neg); URINE PHENCYCLIDINE SCREEN NEGATIVE (Neg)
--- NOTE | 2024-06-30 17:52 | NUR ---
mother at bedside. [phone]. stated that she was going to pt car to see if she can find the medication taken.
--- NOTE | 2024-06-30 18:16 | NUR ---
Poison Control called for update, said to continue monitoring and repeat Salicylate level now to see trend.
--- NOTE | 2024-06-30 18:30 | NUR ---
Assumed patient care. Patient is sleeping. No distress.
[2024-06-30 19:11] LABS: SALICYLATE 2.5 MG/DL (4.0-20.0)
--- NOTE | 2024-06-30 19:31 | NUR ---
Patient is sleeping in a supine position. W/D, she has good color.
[2024-06-30 20:24] LABS: POTASSIUM 4.1 MMOL/L (3.5-5.1)
--- NOTE | 2024-06-30 20:43 | NUR ---
Patient continues to sleep quietly. She has self repositioned in bed.
--- NOTE | 2024-06-30 21:40 | NUR ---
potassium stopped at this time per md .
--- NOTE | 2024-06-30 22:45 | NUR ---
Patient sleeps. This chief underwriter awoke patient, she requests warm blankets. They were given. This patient is well oriented.
[2024-06-30 22:49] LABS: MAGNESIUM 1.7 MG/DL (1.5-2.4); POTASSIUM 4.5 MMOL/L (3.5-5.1)
[2024-07-01] MEDS: hydrOXYzine 25 MG tablet PO ONE (00:12)
--- NOTE | 2024-07-01 01:00 | NUR ---
Patient resting in bed comfortably at this time with eyes closed appears to be asleep. respiratory rate even and unlabored. water recently given to patient by ed emt. No current needs at this time.
--- NOTE | 2024-07-01 01:52 | NUR ---
Patient sleeping, no distress.
--- NOTE | 2024-07-01 02:23 | NUR ---
Patient sleeping in a supine position. No distress. A sitter is observing.
--- NOTE | 2024-07-01 03:20 | NUR ---
Patient up to bathroom. No distress. Patient is well oriented. She returns to sleep.
[2024-07-01 05:34] VITALS: BP 133/92; PULSE 78; O2SAT 97
--- NOTE | 2024-07-01 05:49 | NUR ---
Patient is sleeping, no distress.
--- NOTE | 2024-07-01 06:48 | NUR ---
MENTAL HEALTH PACKET FAXED TO [facility] @ 06:46
--- NOTE | 2024-07-01 07:15 | NUR ---
pt was woken up for blood draw. pt asked if she could use the bathroom, pt was walked to the bathroom with no issues. once back in the room pt asked when she was going to be evaluated by the quality worker and said that she wants to go home today that she was not trying to kill herself but was seeking attention from her mother. pt was reassured that quality worker will be by today at some point to speak with her.
[2024-07-01 07:22] VITALS: RESP 16
--- NOTE | 2024-07-01 07:55 | NUR ---
pt requested a warm blanket. blanket was provided and pt is now laying down.
--- NOTE | 2024-07-01 08:33 | NUR ---
pt is resting in bed at this time. no appearant signs of distress noted at this time. visable rise and fall of chest.
--- NOTE | 2024-07-01 09:54 | NUR ---
Pt awaiting mental health with possible discharge. Requesting apple juice equal and unlabored breaths, no signs of resp distress
--- NOTE | 2024-07-01 10:46 | NUR ---
Per [facility] patient has a mental health provider to follow up with and is supposed to go through substance abuse counseling
[2024-07-01 11:08] VITALS: TEMP 97.2
== END 2024-07-01 11:12 | disposition home or self-care (01) ==
LOC: ER 11:38
DX: T40.601A Poisoning by unspecified narcotics, accidental (unintentional), initial encounter (principal); Z20.822 Contact with and (suspected) exposure to COVID-19; E87.6 Hypokalemia; F10.129 Alcohol abuse with intoxication, unspecified; F19.10 Other psychoactive substance abuse, uncomplicated; Y92.89 Other specified places as the place of occurrence of the external cause; Y90.9 Presence of alcohol in blood, level not specified
CPT/HCPCS: 36415; 80048; 80305; 80320; 80329; 81025; 83735; 84132; 85025; 87811; 93005; 96361; 96365; 96366; 99285; J3480; J7030; Q0177

== ENCOUNTER 2025-02-15 13:24 | Emergency (ER) | payer MEDICAID ==
[~2025-02-15] VITALS: Ht 152.4 cm; Wt 61.4 kg
[2025-02-15 13:37] VITALS: TEMP 97.9
[2025-02-15] MEDS: cloNIDine 0.1 mg tablet PO ONE (15:01)
[2025-02-15] MEDS: diphenhydrAMINE 25mg capsule PO ONE (15:02)
[2025-02-15] MEDS: buprenorphine/naloxone 8MG-2MG SUBlingual film SL ONE (15:02)
[2025-02-15] MEDS: normal saline 1000ML IV soln IVB ONE (15:03)
[2025-02-15] MEDS: ondansetron/PF 4mg/2ml inj IV ONE (15:09)
[2025-02-15 15:50] VITALS: BP 139/96; PULSE 81; RESP 17; O2SAT 97
== END 2025-02-15 15:53 | disposition home or self-care (01) ==
LOC: ER 13:25
DX: F11.23 Opioid dependence with withdrawal (principal); F12.90 Cannabis use, unspecified, uncomplicated; K21.9 Gastro-esophageal reflux disease without esophagitis; F41.9 Anxiety disorder, unspecified; F32.A Depression, unspecified; Z88.8 Allergy status to other drugs, medicaments and biological substances; Z79.899 Other long term (current) drug therapy; Z72.89 Other problems related to lifestyle
CPT/HCPCS: 96361; 96374; 99284; J2405; J7030; Q0163

== ENCOUNTER 2025-03-22 19:58 | Emergency (ER) | payer MEDICAID ==
[~2025-03-22] VITALS: Ht 152.4 cm; Wt 52.3 kg
--- NOTE | 2025-03-22 20:44 | Physician Documentation ---
History of Present Illness ~ Chief Complaint: Medical Clearance Stated Complaint: MED CLEARANCE Time Seen by MD: 20:31 Primary Medical Doctor: [facility] HPI 29-year-old female reports ER for medical clearance to report to detox facility. Patient is currently denies SI, HI visual auditory hallucinations. Patient states she is reporting later tonight. No other complaints at this time Tetanus within 5 years?: Yes Medication Reconciliation Allergies: Coded Allergies: fluoxetine (Verified Allergy, Intermediate, ANXIETY, 03/22/25) levetiracetam (Verified Allergy, Unknown, 03/22/25) prochlorperazine (Verified Allergy, Unknown, 03/22/25) metoclopramide (Verified Adverse Reaction, Mild, 03/22/25) lorazepam (Verified Adverse Reaction, Unknown, INCREASED ANXITY AND AGGITATION, 03/22/25) Scheduled Clonidine HCl (Clonidine HCl), 1 TAB PO Q12H Gabapentin (Neurontin), 1 CAP PO Q8H Prazosin Hcl (Prazosin Hcl), 1 MG PO HS Past Medical History Past Medical History: Seizures, *GI/HEPATOBILIARY*, Gastritis, GERD, Peptic Ulcer Disease, Anxiety, Depression Past Surgical History: no surgical history Other Past Family History: Mother with hx of cervical cancer Alcohol Use: Occasionally Drug Use: marijuana Lives with: Family Lives In: Home Occupation: student Physical Exam Vital Signs: Temperature: 98.1, Source: Oral, Heart Rate: 95, Respiratory Rate: 14, BP: 121/89, Pulse Oximetry: 99, Weight: 52.270 Physical Exam General: Well developed, well nourished, no distress. HEENT: Atraumatic, normal conjunctiva, moist mucous membranes. Neck: Full range of motion, supple. Respiratory: Lungs clear, no respiratory distress. Chest: No accessory muscle use, nontender. Cardiovascular: Regular rate and rhythm. Gastrointestinal: Soft, nontender, nondistended. Bowel sounds present. Extremities: Normal range of motion, nontender, normal capillary refill, no deformity. Back: No midline tenderness, no CVA tenderness. Neurologic: Oriented x4. Distal gross motor and sensory intact all four extremities. Moves all 4 extremities spontaneously. Psychiatric: Normal mood and affect. Skin: Normal color, warm and dry. No edema, no ecchymosis Progress Results/Orders Results/Orders Vital Signs 03/22/25 20:18 Temp 98.1 Pulse 95 Resp 14 B/P (MAP) 121/89 Pulse Ox 99 Medical Decision Making Additional info obtained from: old records Findings After detailed discussion and joint medical decision-making, diagnostic and imaging results were discussed with the patient. At this time patient we will be medically cleared to report to detox facility and rehabilitation. Patient is he was discharged. Patient was advised that this only lasts for Differential Dx:Considerations: Include: Intoxication-Alcohol, Intoxication- Other drug, Personality disorder, Substance abuse disorder, Skull fracture, Fracture(s), Laceration, Alcohol withdrawl syndrom, Encephalopathy, Hepatitis Departure Disposition: HOME / SELF CARE / HOMELESS Impression: Primary Impression: General medical exam Condition: Stable Discharge Instructions: Medical Screening Exam Additional Instructions: Patient is medically cleared to report to detox and rehabilitation facility Referrals: NO PRIMARY CARE PROVIDER (PCP) Education Educated: Patient Educated regarding: diagnosis, treatment Signature Scribe Signature: None used Attestation: Scribed for Adam Diamond by Adam ZELAYA . 03/22/25 20:44 ADAM DIAMOND March 22, 2025 20:44
[2025-03-22 20:57] VITALS: BP 120/81; PULSE 88; RESP 16; TEMP 98.1; O2SAT 99
== END 2025-03-22 21:00 | disposition home or self-care (01) ==
LOC: ER 19:58
DX: Z02.9 Encounter for administrative examinations, unspecified (principal); F12.90 Cannabis use, unspecified, uncomplicated; F41.9 Anxiety disorder, unspecified; K21.9 Gastro-esophageal reflux disease without esophagitis; F32.A Depression, unspecified; Z72.89 Other problems related to lifestyle; Z88.8 Allergy status to other drugs, medicaments and biological substances; Z79.899 Other long term (current) drug therapy
CPT/HCPCS: 99281

== ENCOUNTER 2025-04-02 17:54 | Emergency (ER) | payer MEDICAID ==
[~2025-04-02] VITALS: Ht 152.4 cm; Wt 57.1 kg
[2025-04-02 18:02] VITALS: BP 113/72; PULSE 95; RESP 15; TEMP 97.4; O2SAT 100
--- NOTE | 2025-04-02 18:02 | ELECTROCARDIOGRAPH REPORT ---
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 Nikko High Measurements Intervals Wiley Rate: 89 P: 59 MN: 163 QRS: 61 QRSD: 83 T: 45 QT: 362 QTc: 441 Interpretive Statements Sinus rhythm Abnormal Q suggests anterior infarct Borderline T wave abnormalities Electronically Signed On 04-04-2025 6:35:[address] Nikko High Please click the below link to view image of tracing.
[2025-04-02 18:19] LABS: BASOPHILS % (AUTO) 0.5 % (0-1); EOSINOPHILS % (AUTO) 0.1 % (0-6); HEMATOCRIT 37.7 % (35.0-45.0); HEMOGLOBIN 12.5 g/dl (12.0-16.0); LYMPHOCYTES # (AUTO) 2.6 X10'3 (1.1-4.8); LYMPHOCYTES % (AUTO) 35.2 % (21-51); MEAN CORPUSCULAR HEMOGLOBIN 27.2 PG (27.0-31.0); MEAN CORPUSCULAR HGB CONC 33.2 g/dL (33.0-36.5); MEAN PLATELET VOLUME 6.7 FL (7.4-10.4); MONOCYTES # (AUTO) 0.5 X10'3 (0-0.9); MONOCYTES % (AUTO) 7.1 % (2-12); NEUTROPHILS # (AUTO) 4.2 X10'3 (1.8-7.7); NEUTROPHILS % (AUTO) 57.1 % (42-75); PLATELET COUNT 261 X10'3 (140-440); WHITE BLOOD COUNT 7.3 X10'3 (4.5-11.0)
[2025-04-02 18:52] LABS: ALBUMIN 3.6 G/DL (3.4-5.0); ANION GAP 4 (8-16); BLOOD UREA NITROGEN 12 MG/DL (7-18); BUN/CREATININE RATIO 12.8 (10.0-20.0); CALCIUM 8.7 MG/DL (8.5-10.1); CHLORIDE 105 MMOL/L (99-107); CREATININE 0.94 MG/DL (0.40-0.90); GLUCOSE 91 MG/DL (70-104); POTASSIUM 3.8 MMOL/L (3.5-5.1); PRO BRAIN NATRIURETIC PEPTIDE 69 PG/ML (0-125); SODIUM 141 MMOL/L (135-145); eCRCL 65 ML/MIN; eGFR 71 ML/MIN
--- NOTE | 2025-04-02 19:06 | RADIOLOGY REPORT ---
EXAM: DI CHEST,SINGLE VIEW Indication: CP Technique: Single frontal view of the chest was obtained Comparison: DI CHEST,SINGLE VIEW on DOS: 03/01/24, CHEST,SINGLE VIEW on DOS: 07/04/22, CHEST,SINGLE VIEW on DOS: 03/30/22, CHEST,SINGLE VIEW on DOS: 04/28/21 FINDINGS: Lines and Tubes: None Lungs: No focal consolidation. Pleura: No effusion. No pneumothorax. Cardiomediastinal contours: Unremarkable Bones: No acute osseous abnormality. IMPRESSION: No acute cardiopulmonary disease.
== END 2025-04-02 19:50 | disposition left against medical advice (07) ==
LOC: ER 17:54
DX: Z02.9 Encounter for administrative examinations, unspecified (principal); Z53.21 Procedure and treatment not carried out due to patient leaving prior to being seen by health care provider; Z88.8 Allergy status to other drugs, medicaments and biological substances
CPT/HCPCS: 36415; 71045; 80048; 83880; 84484; 85025; 93005

== ENCOUNTER 2025-04-03 07:30 | Emergency (ER) | payer MEDICAID ==
[~2025-04-03] VITALS: Ht 152.4 cm; Wt 59.0 kg
[2025-04-03 07:33] VITALS: BP 113/86; PULSE 91; RESP 18; TEMP 97.9; O2SAT 99
--- NOTE | 2025-04-03 07:43 | Physician Documentation ---
History of Present Illness ~ Chief Complaint: Medical Clearance Stated Complaint: MED CLEARANCE Time Seen by MD: 07:36 Primary Medical Doctor: [facility] HPI Patient states that she needs a medical clearance to go to rehab. Patient has b een using fentanyl that has concerned about withdrawal but she is taking methadone. She does not have any symptoms. She does not have any chronic medical conditions. Tetanus within 5 years?: No Medication Reconciliation Allergies: Coded Allergies: fluoxetine (Verified Allergy, Intermediate, ANXIETY, 03/22/25) levetiracetam (Verified Allergy, Unknown, 03/22/25) prochlorperazine (Verified Allergy, Unknown, 03/22/25) metoclopramide (Verified Adverse Reaction, Mild, 03/22/25) lorazepam (Verified Adverse Reaction, Unknown, INCREASED ANXITY AND AGGITATION, 03/22/25) Scheduled Clonidine HCl (Clonidine HCl), 1 TAB PO Q12H Gabapentin (Neurontin), 1 CAP PO Q8H Prazosin Hcl (Prazosin Hcl), 1 MG PO HS Past Medical History Past Medical History: Seizures, *GI/HEPATOBILIARY*, Gastritis, GERD, Peptic Ulcer Disease, Anxiety, Depression Past Surgical History: no surgical history Other Past Family History: Mother with hx of cervical cancer Alcohol Use: Occasionally Drug Use: marijuana Lives with: Family Lives In: Home Occupation: student Physical Exam Vital Signs: Temperature: 97.9, Source: Temporal, Heart Rate: 91, Respiratory Rate: 18, BP: 113/86, Pulse Oximetry: 99, Weight: 59.050 Oxygen Flow Rate: 0 Physical Exam General: Awake and Alert, no acute distress. HEENT: Conjunctiva pink, Sclera clear, Mucus Membranes moist. Neck: Supple without masses and tenderness. Resp: Unlabored. Lungs clear to auscultation bilaterally. Heart: Regular Rate and rhythm, normal S1 and S2 without murmur, rub or gallop. Abdomen: Soft and non tender no organomegaly Extremities: No cyanosis,clubbing or edema. Skin: Warm and Dry. Neuro: GCS 15; no focal deficits Progress Results/Orders Results/Orders Vital Signs 04/03/25 07:33 Temp 97.9 Pulse 91 Resp 18 B/P (MAP) 113/86 Pulse Ox 99 O2 Flow Rate 0 Medical Decision Making Findings Patient is here for medical clearance for rehab she is asymptomatic. There was concern about with draw from fentanyl but she is taking methadone. I gave her a note that is so she is medically cleared for rehab. Departure Disposition: HOME / SELF CARE / HOMELESS Impression: Primary Impression: Opioid dependence Qualified Codes: F11.29 - Opioid dependence with unspecified opioid-induced disorder Condition: Stable Discharge Instructions: Medical Screening Exam Departure Forms: Excuse form Work or School Additional Instructions: She has been medically cleared for rehab. Referrals: NO PRIMARY CARE PROVIDER (PCP) Education Educated: Patient Educated regarding: diagnosis, treatment, prognosis, need for follow up Signature Scribe Signature: no scribe Attestation: no scribe AFUA SALGADO MD Apr 03, 2025 07:43
== END 2025-04-03 07:51 | disposition home or self-care (01) ==
LOC: ER 07:32
DX: F11.29 Opioid dependence with unspecified opioid-induced disorder (principal); K21.9 Gastro-esophageal reflux disease without esophagitis; F41.9 Anxiety disorder, unspecified; F32.A Depression, unspecified; F12.90 Cannabis use, unspecified, uncomplicated; Z88.8 Allergy status to other drugs, medicaments and biological substances; Z79.899 Other long term (current) drug therapy
CPT/HCPCS: 99281